=== PATIENT | male | born 1945 | race African-American/Black ===

== ENCOUNTER → 2016-12-25 | Outpatient (CLI) | payer MEDICARE, MEDICAID ==
[~2016-12-25] MED LIST: REGADENOSON 0.4 MG/5 ML IV ONE
== END | disposition home or self-care (01) ==
LOC: NM 07:05
DX: I44.7 Left bundle-branch block, unspecified (principal); R07.9 Chest pain, unspecified; N18.6 End stage renal disease
CPT/HCPCS: 78452; 93017; A9500; J2785

== ENCOUNTER 2018-09-03 04:43 | Inpatient (IN) | payer MEDICARE, MEDICAID ==
[~2018-09-03] VITALS: Ht 188 cm; Wt 93.4 kg
[2018-09-03 07:30] LABS: BASOPHILS % 1.4 % (0.0-2.0); EOSINOPHILS % 10.1 % (0.0-5.0); HEMOGLOBIN. 11.3 g/dL (14.0-18.0); LYMPHOCYTES % 11.1 % (20.0-50.0); MEAN CORPUSCULAR HEMOGLOBIN 32.5 pg (28.0-32.0); MEAN CORPUSCULAR VOLUME 94.8 fL (80.0-94.0); MEAN PLATELET VOLUME 9.1 fl (7.4-10.4); MONOCYTES % 7.3 % (2.0-8.0); NEUTROPHILS % 70.1 % (40.0-76.0); PLATELET 151 x1000/uL (130-400); RED BLOOD CELL COUNT 3.47 mill/uL (4.7-6.1); RED CELL DISTRIBUTION WIDTH 15.1 % (11.6-14.6)
[2018-09-03 07:37] LABS: CHLORIDE 101 mEq/L (98-107)
[2018-09-03 07:39] LABS: INR 1.2; PROTHROMBIN TIME 12.2 sec (9.1-11.1)
[2018-09-03] MEDS ORDERED: ASPIRIN 325MG EC TABLET PO ONE (08:00)
[2018-09-03 12:30] VITALS: BP 162/70
[2018-09-03] MEDS ORDERED: DOCUSATE SODIUM 100MG CAPSULE PO PRN (12:45)
[2018-09-03] MEDS ORDERED: ACETAMINOPHEN 325MG TABLET PO PRN (12:45)
[2018-09-03] MEDS ORDERED: MAGNESIUM/ALUMINUM HYDROXIDE/SIMETHICONE 30ML UDC PO PRN (12:45)
[2018-09-03] MEDS ORDERED: HYDROCODONE/ACETAMINOPHEN 5/325MG TABLET PO PRN (12:45)
[2018-09-03] MEDS ORDERED: NA PHOS,M-B/NA PHOS,DI-BA ENEMA 118ML PR PRN (12:45)
[2018-09-03] MEDS ORDERED: DIPHENHYDRAMINE 50MG/ML VIAL IV PRN (12:45)
[2018-09-03] MEDS ORDERED: CLONIDINE 0.1MG TABLET PO PRN (12:45)
[2018-09-03] MEDS ORDERED: ONDANSETRON HCL 4MG/2ML INJ IV PRN (12:45)
[2018-09-03] MEDS ORDERED: GUAIFENESIN 200MG/10ML SUGAR FREE UDC PO PRN (12:45)
[2018-09-03] MEDS ORDERED: NEPVIT MT (13:33)
[2018-09-03] MEDS ORDERED: NIFE60TA64 MT (13:33)
[2018-09-03] MEDS ORDERED: ESOM40CA MT (13:33)
[2018-09-03] MEDS ORDERED: APIX2.5T MT (13:33)
[2018-09-03] MEDS ORDERED: BENA40TA9 MT (13:33)
[2018-09-03] MEDS ORDERED: DEXTROSE 50% WATER 50ML SYRINGE IV PRN ×2 (13:45)
[2018-09-03 14:01] VITALS: BP 162/70
[2018-09-03 16:00] VITALS: BP 160/82
[2018-09-03] MEDS: INSULIN LISPRO 100 UNITS/ML SUBCUT SCH ×2 (17:40→20:31)
[2018-09-03] MEDS: BLOOD SUGAR DIAGNOSTIC STRIP TEST SCH ×2 (17:53→20:31)
[2018-09-03] MEDS: ENOXAPARIN 100MG/ML SYR SUBCUT SCH (17:53)
[2018-09-03 20:00] VITALS: BP 150/75
[2018-09-04] VITALS (7 sets, daily range): BP systolic 127–161; BP diastolic 59–87
[2018-09-04] MEDS: BLOOD SUGAR DIAGNOSTIC STRIP TEST SCH ×4 (06:48→21:00)
[2018-09-04] MEDS: INSULIN LISPRO 100 UNITS/ML SUBCUT SCH ×4 (06:49→21:00)
[2018-09-04 07:09] LABS: BASOPHILS % 1.3 % (0.0-2.0); EOSINOPHILS % 8.1 % (0.0-5.0); HEMATOCRIT. 36.2 % (42.0-52.0); LYMPHOCYTES % 16.2 % (20.0-50.0); MEAN CORPUSCULAR HEMOGLOBIN 31.9 pg (28.0-32.0); MEAN PLATELET VOLUME 9.3 fl (7.4-10.4); MONOCYTES % 8.5 % (2.0-8.0); NEUTROPHILS % 65.9 % (40.0-76.0); PLATELET 137 x1000/uL (130-400); RED BLOOD CELL COUNT 3.77 mill/uL (4.7-6.1)
[2018-09-04 07:30] LABS: CREATINE KINASE MB FRACTION 1.3 ng/mL (0.5-3.6)
[2018-09-04] MEDS: ENOXAPARIN 100MG/ML SYR SUBCUT SCH (08:49)
[2018-09-05] VITALS: BP 138/64
[2018-09-05 04:00] VITALS: BP 151/73
[2018-09-05 08:00] VITALS: BP 142/70
[2018-09-05 08:58] VITALS: BP 142/70
[2018-09-05] MEDS: ENOXAPARIN 100MG/ML SYR SUBCUT SCH (09:52)
== END 2018-09-05 10:25 | disposition home or self-care (01) | DRG 312 ==
LOC: ER 05:24 → 8WST 08:04 → EDBEDREQ 08:07 → ENRESERV 09:50
PROVIDERS: ADMIT Hospitalist; ATTEND Hospitalist
PROC: 5A1D70Z Performance of Urinary Filtration, Intermittent, Less than 6 Hours Per Day (ICD-10-PCS; principal; 2018-09-03)
DX: I95.1 Orthostatic hypotension (principal); N18.6 End stage renal disease; D68.59 Other primary thrombophilia; E46 Unspecified protein-calorie malnutrition; I13.2 Hypertensive heart and chronic kidney disease with heart failure and with stage 5 chronic kidney disease, or end stage renal disease; D63.8 Anemia in other chronic diseases classified elsewhere; E11.22 Type 2 diabetes mellitus with diabetic chronic kidney disease; E11.40 Type 2 diabetes mellitus with diabetic neuropathy, unspecified; E11.69 Type 2 diabetes mellitus with other specified complication; E78.00 Pure hypercholesterolemia, unspecified; E78.5 Hyperlipidemia, unspecified; E87.6 Hypokalemia; I25.10 Atherosclerotic heart disease of native coronary artery without angina pectoris; I48.2 Chronic atrial fibrillation; I50.9 Heart failure, unspecified; M19.90 Unspecified osteoarthritis, unspecified site; K80.20 Calculus of gallbladder without cholecystitis without obstruction; M10.9 Gout, unspecified; Z79.01 Long term (current) use of anticoagulants; Z82.49 Family history of ischemic heart disease and other diseases of the circulatory system; Z83.3 Family history of diabetes mellitus; Z86.73 Personal history of transient ischemic attack (TIA), and cerebral infarction without residual deficits; Z99.2 Dependence on renal dialysis; Z68.26 Body mass index [BMI] 26.0-26.9, adult; Z79.84 Long term (current) use of oral hypoglycemic drugs
CPT/HCPCS: 36415; 71045; 80048; 80061; 82550; 82553; 82962; 83036; 83735; 84100; 84443; 84484; 85379; 93005; 93970; 99285; J1650

== ENCOUNTER 2018-09-15 04:18 | Inpatient (IN) | payer MEDICARE, MEDICAID ==
[~2018-09-15] VITALS: Ht 188 cm; Wt 101.6 kg
[~2018-09-15 04:18] MED LIST changes: +APIX2.5T MT; +BENA40TA9 MT; +ESOM40CA MT; +NEPVIT MT; +NIFE60TA64 MT; -REGADENOSON 0.4 MG/5 ML IV ONE
[2018-09-15 05:26] LABS: BASOPHILS % 0.8 % (0.0-2.0); EOSINOPHILS % 5.5 % (0.0-5.0); HEMOGLOBIN. 12.4 g/dL (14.0-18.0); LYMPHOCYTES % 10.3 % (20.0-50.0); MEAN CORPUSCULAR HEMOGLOBIN 32.4 pg (28.0-32.0); MEAN CORPUSCULAR VOLUME 96.5 fL (80.0-94.0); MEAN PLATELET VOLUME 9.6 fl (7.4-10.4); MONOCYTES % 5.8 % (2.0-8.0); NEUTROPHILS % 77.6 % (40.0-76.0); PLATELET 132 x1000/uL (130-400); RED BLOOD CELL COUNT 3.83 mill/uL (4.7-6.1); RED CELL DISTRIBUTION WIDTH 15.6 % (11.6-14.6)
[2018-09-15 05:29] LABS: CHLORIDE 99 mEq/L (98-107)
[2018-09-15 05:34] LABS: INR 1.2
[2018-09-15] MEDS: CALCIUM ACETATE 667MG CAPSULE PO SCH ×2 (13:00→17:33)
[2018-09-15 14:00] VITALS: BP 144/72
[2018-09-15 14:38] VITALS: BP 144/72
[2018-09-15] MEDS: LISINOPRIL 40MG TABLET PO SCH (15:45)
[2018-09-15] MEDS ORDERED: FOLIC ACID/VITAMIN B COMP W-C TABLET PO SCH (15:45)
[2018-09-15] MEDS: NIFEDIPINE XL 60MG TAB PO SCH (15:45)
[2018-09-15] MEDS ORDERED: ENOXAPARIN 40MG/0.4ML SYR SUBCUT SCH (15:45)
[2018-09-15] MEDS: APIXABAN 2.5 MG TABLET PO SCH (17:33)
[2018-09-15] MEDS ORDERED: DEXTROSE 50% WATER 50ML SYRINGE IV PRN (18:15)
[2018-09-15 20:51] VITALS: BP 125/61
[2018-09-15 20:52] VITALS: BP 124/62
[2018-09-15 20:53] VITALS: BP 121/54
[2018-09-15] MEDS: BLOOD SUGAR DIAGNOSTIC STRIP TEST SCH (21:18)
[2018-09-15] MEDS: PANTOPRAZOLE 40MG DR TABLET PO SCH (21:18)
[2018-09-15] MEDS: SODIUM CHLORIDE 0.9% INJ 3ML FLUSH IVF SCH (21:19)
[2018-09-15] MEDS: INSULIN LISPRO 100 UNITS/ML SUBCUT SCH (21:25)
[2018-09-16] VITALS (8 sets, daily range): BP systolic 105–152; BP diastolic 47–85
[2018-09-16] MEDS: SODIUM CHLORIDE 0.9% INJ 3ML FLUSH IVF SCH ×3 (06:17→20:57)
[2018-09-16] MEDS: BLOOD SUGAR DIAGNOSTIC STRIP TEST SCH ×4 (06:20→20:32)
[2018-09-16] MEDS: PANTOPRAZOLE 40MG DR TABLET PO SCH (06:20)
[2018-09-16] MEDS: INSULIN LISPRO 100 UNITS/ML SUBCUT SCH ×4 (07:50→20:32)
[2018-09-16 08:01] LABS: BASOPHILS % 1.1 % (0.0-2.0); EOSINOPHILS % 5.2 % (0.0-5.0); HEMATOCRIT. 37.8 % (42.0-52.0); HEMOGLOBIN. 12.5 g/dL (14.0-18.0); LYMPHOCYTES % 13.9 % (20.0-50.0); MEAN CORPUSCULAR HEMOGLOBIN 31.9 pg (28.0-32.0); MEAN CORPUSCULAR VOLUME 96.4 fL (80.0-94.0); MEAN PLATELET VOLUME 9.9 fl (7.4-10.4); NEUTROPHILS % 70.8 % (40.0-76.0); PLATELET 129 x1000/uL (130-400); RED BLOOD CELL COUNT 3.92 mill/uL (4.7-6.1); RED CELL DISTRIBUTION WIDTH 15.3 % (11.6-14.6)
[2018-09-16] MEDS: FOLIC ACID/VITAMIN B COMP W-C TABLET PO SCH (09:18)
[2018-09-16] MEDS: NIFEDIPINE XL 60MG TAB PO SCH (09:19)
[2018-09-16] MEDS: LISINOPRIL 40MG TABLET PO SCH (09:19)
[2018-09-16] MEDS: APIXABAN 2.5 MG TABLET PO SCH ×2 (09:19→17:33)
[2018-09-16] MEDS: CALCIUM ACETATE 667MG CAPSULE PO SCH ×3 (09:19→17:33)
[2018-09-16 10:10] LABS: PHOSPHORUS 4.1 mg/dL (2.5-4.9)
[2018-09-16 10:16] LABS: CREATINE KINASE MB FRACTION 2.1 ng/mL (0.5-3.6)
[2018-09-16] MEDS: AZITHROMYCIN 500 MG TABLET PO SCH (12:31)
[2018-09-16] MEDS: ALBUTEROL (0.5%) 2.5MG/0.5ML NEB HHN SCH ×3 (12:46→23:43)
[2018-09-16] MEDS ORDERED: ACETAMINOPHEN 325MG TABLET PO PRN (20:45)
[2018-09-17] VITALS: BP 141/63
[2018-09-17 04:00] VITALS: BP 130/64
[2018-09-17] MEDS: SODIUM CHLORIDE 0.9% INJ 3ML FLUSH IVF SCH ×3 (05:51→21:06)
[2018-09-17] MEDS: BLOOD SUGAR DIAGNOSTIC STRIP TEST SCH ×4 (06:25→21:06)
[2018-09-17 06:35] LABS: HEMATOCRIT. 35.8 % (42.0-52.0); HEMOGLOBIN. 10.7 g/dL (14.0-18.0); MEAN CORPUSCULAR HEMOGLOBIN 29.1 pg (28.0-32.0); MEAN CORPUSCULAR VOLUME 97.8 fL (80.0-94.0); RED BLOOD CELL COUNT 3.66 mill/uL (4.7-6.1); RED CELL DISTRIBUTION WIDTH 15.7 % (11.6-14.6)
[2018-09-17] MEDS: INSULIN LISPRO 100 UNITS/ML SUBCUT SCH ×4 (07:50→21:00)
[2018-09-17 08:00] VITALS: BP_SYST 132; BP_SYST 134; BP_SYST 136; BP_DIAS 60; BP_DIAS 66; BP_DIAS 70
[2018-09-17] MEDS: ALBUTEROL (0.5%) 2.5MG/0.5ML NEB HHN SCH ×4 (08:04→22:12)
[2018-09-17] MEDS ORDERED: CLONIDINE 0.1MG TABLET PO PRN (08:45)
[2018-09-17] MEDS: FOLIC ACID/VITAMIN B COMP W-C TABLET PO SCH (08:56)
[2018-09-17] MEDS: FAMOTIDINE 20MG TABLET PO SCH (08:56)
[2018-09-17] MEDS: CALCIUM ACETATE 667MG CAPSULE PO SCH ×3 (08:57→17:59)
[2018-09-17] MEDS: AZITHROMYCIN 500 MG TABLET PO SCH (08:57)
[2018-09-17] MEDS: APIXABAN 2.5 MG TABLET PO SCH ×2 (08:57→17:59)
[2018-09-17] MEDS: NIFEDIPINE XL 60MG TAB PO SCH (09:13)
[2018-09-17 10:17] LABS: PLATELET 128 x1000/uL (130-400)
[2018-09-17 10:22] LABS: PLATELET ESTIMATE SLIGHTLY DECREASED
[2018-09-17 12:00] VITALS: BP 148/70
[2018-09-17 16:00] VITALS: BP 147/64
[2018-09-17 20:00] VITALS: BP 129/60
[2018-09-18] VITALS: BP_SYST 126; BP_SYST 130; BP_SYST 135; BP_DIAS 57; BP_DIAS 62; BP_DIAS 70
[2018-09-18 04:00] VITALS: BP 130/62
[2018-09-18] MEDS: BLOOD SUGAR DIAGNOSTIC STRIP TEST SCH ×3 (06:25→21:00)
[2018-09-18] MEDS: SODIUM CHLORIDE 0.9% INJ 3ML FLUSH IVF SCH ×3 (06:25→14:00)
[2018-09-18 06:57] LABS: BASOPHILS % 1.4 % (0.0-2.0); HEMATOCRIT. 34.6 % (42.0-52.0); HEMOGLOBIN. 11.6 g/dL (14.0-18.0); LYMPHOCYTES % 11.2 % (20.0-50.0); MEAN CORPUSCULAR HEMOGLOBIN 32.1 pg (28.0-32.0); MEAN CORPUSCULAR VOLUME 95.4 fL (80.0-94.0); MEAN PLATELET VOLUME 9.5 fl (7.4-10.4); MONOCYTES % 10.3 % (2.0-8.0); NEUTROPHILS % 72.1 % (40.0-76.0); PLATELET 155 x1000/uL (130-400); RED BLOOD CELL COUNT 3.62 mill/uL (4.7-6.1); RED CELL DISTRIBUTION WIDTH 14.8 % (11.6-14.6)
[2018-09-18] MEDS: INSULIN LISPRO 100 UNITS/ML SUBCUT SCH ×3 (07:24→21:00)
[2018-09-18 07:48] LABS: VITAMIN B12 SERUM 1134 pg/mL (211-911)
[2018-09-18 08:00] VITALS: BP 141/70
[2018-09-18] MEDS: ALBUTEROL (0.5%) 2.5MG/0.5ML NEB HHN SCH (08:04)
[2018-09-18] MEDS: CALCIUM ACETATE 667MG CAPSULE PO SCH ×2 (09:48→13:47)
[2018-09-18] MEDS: APIXABAN 2.5 MG TABLET PO SCH (09:48)
[2018-09-18] MEDS: NIFEDIPINE XL 60MG TAB PO SCH (09:48)
[2018-09-18] MEDS: FOLIC ACID/VITAMIN B COMP W-C TABLET PO SCH (09:48)
[2018-09-18] MEDS: AZITHROMYCIN 500 MG TABLET PO SCH (09:48)
[2018-09-18] MEDS: FAMOTIDINE 20MG TABLET PO SCH (09:48)
[2018-09-18 12:00] VITALS: BP_SYST 133; BP_SYST 141; BP_SYST 150; BP_DIAS 57; BP_DIAS 72; BP_DIAS 73
[2018-09-18] MEDS: ALBUTEROL (0.083%) 2.5MG/3ML NEB HHN SCH ×3 (12:30→21:24)
[2018-09-18 16:00] VITALS: BP 164/65
[2018-09-18 20:00] VITALS: BP 133/60
[2018-09-19] VITALS (7 sets, daily range): BP systolic 124–157; BP diastolic 52–72
[2018-09-19 06:45] LABS: BASOPHILS % 1.4 % (0.0-2.0); EOSINOPHILS % 4.3 % (0.0-5.0); HEMATOCRIT. 34.1 % (42.0-52.0); HEMOGLOBIN. 11.3 g/dL (14.0-18.0); LYMPHOCYTES % 11.8 % (20.0-50.0); MEAN CORPUSCULAR HEMOGLOBIN 32.5 pg (28.0-32.0); MEAN CORPUSCULAR VOLUME 97.8 fL (80.0-94.0); MEAN PLATELET VOLUME 9.4 fl (7.4-10.4); MONOCYTES % 10.9 % (2.0-8.0); NEUTROPHILS % 71.6 % (40.0-76.0); PLATELET 148 x1000/uL (130-400); RED BLOOD CELL COUNT 3.49 mill/uL (4.7-6.1); RED CELL DISTRIBUTION WIDTH 15.4 % (11.6-14.6)
[2018-09-19 07:01] LABS: PHOSPHORUS 4.8 mg/dL (2.5-4.9)
[2018-09-19] MEDS: BLOOD SUGAR DIAGNOSTIC STRIP TEST SCH ×4 (07:20→21:00)
[2018-09-19] MEDS: CALCIUM ACETATE 667MG CAPSULE PO SCH ×3 (07:50→17:45)
[2018-09-19] MEDS: INSULIN LISPRO 100 UNITS/ML SUBCUT SCH ×4 (07:50→21:00)
[2018-09-19] MEDS: ALBUTEROL (0.083%) 2.5MG/3ML NEB HHN SCH ×4 (08:07→22:27)
[2018-09-19] MEDS: AZITHROMYCIN 500 MG TABLET PO SCH (09:32)
[2018-09-19] MEDS: FAMOTIDINE 20MG TABLET PO SCH (09:32)
[2018-09-19] MEDS: FOLIC ACID/VITAMIN B COMP W-C TABLET PO SCH (09:32)
[2018-09-19] MEDS: NIFEDIPINE XL 30MG TAB PO SCH (09:32)
[2018-09-19] MEDS: APIXABAN 2.5 MG TABLET PO SCH ×2 (09:32→17:45)
[2018-09-19] MEDS: SODIUM CHLORIDE 0.9% INJ 3ML FLUSH IVF SCH (14:00)
[2018-09-19] MEDS: LOSARTAN POTASSIUM 50 MG TABLET PO SCH (15:26)
[2018-09-20] VITALS (9 sets, daily range): BP systolic 138–156; BP diastolic 51–74
[2018-09-20] MEDS: INSULIN LISPRO 100 UNITS/ML SUBCUT SCH ×4 (07:50→21:00)
[2018-09-20] MEDS: BLOOD SUGAR DIAGNOSTIC STRIP TEST SCH ×4 (08:01→21:38)
[2018-09-20 08:07] LABS: BASOPHILS % 1.2 % (0.0-2.0); HEMATOCRIT. 34.1 % (42.0-52.0); HEMOGLOBIN. 11.7 g/dL (14.0-18.0); LYMPHOCYTES % 11.4 % (20.0-50.0); MEAN CORPUSCULAR HEMOGLOBIN 32.6 pg (28.0-32.0); MEAN CORPUSCULAR VOLUME 95.1 fL (80.0-94.0); MEAN PLATELET VOLUME 9.5 fl (7.4-10.4); MONOCYTES % 8.5 % (2.0-8.0); NEUTROPHILS % 73.9 % (40.0-76.0); PLATELET 149 x1000/uL (130-400); RED BLOOD CELL COUNT 3.59 mill/uL (4.7-6.1); RED CELL DISTRIBUTION WIDTH 14.6 % (11.6-14.6)
[2018-09-20 08:30] LABS: PHOSPHORUS 5.8 mg/dL (2.5-4.9)
[2018-09-20] MEDS: APIXABAN 2.5 MG TABLET PO SCH ×3 (09:00→19:18)
[2018-09-20] MEDS: ASCORBIC ACID 250 MG TABLET PO SCH ×2 (09:19→18:36)
[2018-09-20] MEDS: ZINC SULFATE 220 MG ( 50 ) CAPSULE PO SCH (09:19)
[2018-09-20] MEDS: CALCIUM ACETATE 667MG CAPSULE PO SCH ×3 (09:19→18:37)
[2018-09-20] MEDS: FAMOTIDINE 20MG TABLET PO SCH (09:19)
[2018-09-20] MEDS: ALBUTEROL (0.083%) 2.5MG/3ML NEB HHN SCH ×4 (09:50→22:24)
[2018-09-20] MEDS: NIFEDIPINE XL 30MG TAB PO SCH (17:25)
[2018-09-20] MEDS: LOSARTAN POTASSIUM 50 MG TABLET PO SCH (18:34)
[2018-09-20] MEDS: FOLIC ACID/VITAMIN B COMP W-C TABLET PO SCH (18:36)
[2018-09-20] MEDS: AZITHROMYCIN 500 MG TABLET PO SCH (18:37)
[2018-09-21] VITALS: BP 147/55
[2018-09-21 04:00] VITALS: BP 155/68
[2018-09-21 06:16] LABS: BASOPHILS % 1.4 % (0.0-2.0); EOSINOPHILS % 4.3 % (0.0-5.0); HEMATOCRIT. 33.4 % (42.0-52.0); HEMOGLOBIN. 11.4 g/dL (14.0-18.0); LYMPHOCYTES % 10.9 % (20.0-50.0); MEAN CORPUSCULAR HEMOGLOBIN 32.3 pg (28.0-32.0); MEAN CORPUSCULAR VOLUME 94.7 fL (80.0-94.0); MEAN PLATELET VOLUME 9.7 fl (7.4-10.4); MONOCYTES % 12.6 % (2.0-8.0); NEUTROPHILS % 70.8 % (40.0-76.0); PLATELET 143 x1000/uL (130-400); RED BLOOD CELL COUNT 3.53 mill/uL (4.7-6.1); RED CELL DISTRIBUTION WIDTH 14.6 % (11.6-14.6)
[2018-09-21] MEDS: INSULIN LISPRO 100 UNITS/ML SUBCUT SCH ×3 (07:50→17:37)
[2018-09-21 08:00] VITALS: BP 145/68
[2018-09-21] MEDS: BLOOD SUGAR DIAGNOSTIC STRIP TEST SCH ×3 (08:07→17:37)
[2018-09-21] MEDS: CALCIUM ACETATE 667MG CAPSULE PO SCH ×3 (08:16→18:49)
[2018-09-21] MEDS: ZINC SULFATE 220 MG ( 50 ) CAPSULE PO SCH (08:17)
[2018-09-21] MEDS: APIXABAN 2.5 MG TABLET PO SCH ×2 (08:17→17:37)
[2018-09-21] MEDS: FAMOTIDINE 20MG TABLET PO SCH (08:17)
[2018-09-21] MEDS: ASCORBIC ACID 250 MG TABLET PO SCH ×2 (08:17→18:49)
[2018-09-21] MEDS: FOLIC ACID/VITAMIN B COMP W-C TABLET PO SCH (08:17)
[2018-09-21] MEDS: LOSARTAN POTASSIUM 50 MG TABLET PO SCH (08:26)
[2018-09-21] MEDS: ALBUTEROL (0.083%) 2.5MG/3ML NEB HHN SCH ×3 (08:50→17:30)
[2018-09-21] MEDS ORDERED: NIFEDIPINE XL 30MG TAB PO SCH ×2 (09:00→17:00)
[2018-09-21 11:10] VITALS: BP 160/79
[2018-09-21 15:37] VITALS: BP 155/69
== END 2018-09-21 21:15 | disposition home health service (06) | DRG 73 ==
LOC: ER 04:18 → 6WST 06:24 → ENRESERV 12:36
PROVIDERS: ADMIT Ophthalmology; ATTEND Internal Medicine
PROC: 5A1D70Z Performance of Urinary Filtration, Intermittent, Less than 6 Hours Per Day (ICD-10-PCS; 2018-09-15)
PROC: 5A1D70Z Performance of Urinary Filtration, Intermittent, Less than 6 Hours Per Day (ICD-10-PCS; 2018-09-17)
PROC: 5A1D70Z Performance of Urinary Filtration, Intermittent, Less than 6 Hours Per Day (ICD-10-PCS; principal; 2018-09-20)
DX: G90.8 Other disorders of autonomic nervous system (principal); N18.6 End stage renal disease; I13.2 Hypertensive heart and chronic kidney disease with heart failure and with stage 5 chronic kidney disease, or end stage renal disease; I48.92 Unspecified atrial flutter; E87.1 Hypo-osmolality and hyponatremia; J98.11 Atelectasis; I95.1 Orthostatic hypotension; D63.1 Anemia in chronic kidney disease; E11.22 Type 2 diabetes mellitus with diabetic chronic kidney disease; E78.00 Pure hypercholesterolemia, unspecified; E11.40 Type 2 diabetes mellitus with diabetic neuropathy, unspecified; E11.51 Type 2 diabetes mellitus with diabetic peripheral angiopathy without gangrene; J06.9 Acute upper respiratory infection, unspecified; J44.9 Chronic obstructive pulmonary disease, unspecified; I48.2 Chronic atrial fibrillation; E11.319 Type 2 diabetes mellitus with unspecified diabetic retinopathy without macular edema; M10.9 Gout, unspecified; D69.6 Thrombocytopenia, unspecified; E78.5 Hyperlipidemia, unspecified; H53.2 Diplopia; H91.90 Unspecified hearing loss, unspecified ear; I50.9 Heart failure, unspecified; I27.29 Other secondary pulmonary hypertension; W18.30XA Fall on same level, unspecified, initial encounter; Y93.89 Activity, other specified; Y92.89 Other specified places as the place of occurrence of the external cause; Y99.8 Other external cause status; Z87.891 Personal history of nicotine dependence; Z99.2 Dependence on renal dialysis; Z86.73 Personal history of transient ischemic attack (TIA), and cerebral infarction without residual deficits; Z79.01 Long term (current) use of anticoagulants
CPT/HCPCS: 36415; 71045; 80048; 82550; 82553; 82607; 82962; 83036; 83735; 83880; 84100; 84443; 84484; 85379; 93005; 93306; 93970; 94640; 97116; 97162; 99285; J1815; J7611

== ENCOUNTER 2019-02-16 05:23 | Inpatient (IN) | payer MEDICARE, MEDICAID ==
[2019-02-16] VITALS (45 sets, daily range): BP systolic 52–155; BP diastolic 20–81
[~2019-02-16] VITALS: Ht 193 cm; Wt 95.3 kg
[~2019-02-16 05:23] MED LIST changes: -BENA40TA9 MT; +GABA-529 PO
[2019-02-16] MEDS ORDERED: SODIUM CHLORIDE 0.9% 500 ML IV NR (06:00)
[2019-02-16 06:56] LABS: INR 1.2; PARTIAL THROMBOPLASTIN TIME 38.8 sec (23.4-31.0); PROTHROMBIN TIME 12.2 sec (9.6-11.0)
[2019-02-16] MEDS ORDERED: BACITRACIN 50,000 UNITS/VIAL ONE (09:15)
[2019-02-16] MEDS ORDERED: LIDOCAINE HCL/EPINEPHRINE 1%-EPI 1:100,000 20 ML VIAL ONE (09:15)
[2019-02-16] MEDS ORDERED: THROMBIN (BOVINE) 5000 UNITS/VIAL TOP ONE ×2 (09:15→09:16)
[2019-02-16] MEDS ORDERED: NORMAL SALINE 0.9% 10 ML SYR ONE (09:15)
[2019-02-16] MEDS ORDERED: ROCURONIUM BROMIDE 10MG/ML VIAL 5ML IV ONE (09:37)
[2019-02-16] MEDS ORDERED: LABETALOL 5MG/ML SYR 20 MG/4 ML SYRINGE IV PRN ×2 (10:30)
[2019-02-16] MEDS ORDERED: HYDROMORPHONE HCL/PF 2MG/ML CPJ IV PRN ×2 (10:30)
[2019-02-16] MEDS ORDERED: MEPERIDINE HCL/PF 25MG/ML CPJ IV PRN ×2 (10:30)
[2019-02-16] MEDS ORDERED: ONDANSETRON HCL 4MG/2ML INJ IV PRN ×2 (10:30)
[2019-02-16] MEDS ORDERED: FENTANYL CITRATE/PF 50MCG/ML 2ML VIAL ONE ×2 (10:57→11:54)
[2019-02-16] MEDS ORDERED: EPHEDRINE SULFATE 50MG/ML VIAL ONE (12:26)
[2019-02-16] MEDS ORDERED: HYDRALAZINE 20MG/ML VIAL ONE (12:26)
[2019-02-16] MEDS ORDERED: VERAPAMIL HCL 2.5 MG/1 ML 2ML VIAL IV ONE (12:26)
[2019-02-16] MEDS ORDERED: MORPHINE SULFATE 2 MG/ML CPJ (NOT FOR IM USE) IV PRN (13:00)
[2019-02-16] MEDS ORDERED: NICARDIPINE 100 MG in SODIUM CHLORIDE 0.9% 60 ML IV PRN (13:00)
[2019-02-16] MEDS ORDERED: ACETAMINOPHEN 650MG SUPP PR PRN (13:45)
[2019-02-16] MEDS ORDERED: DIPHENHYDRAMINE 50MG/ML VIAL IV PRN (13:45)
[2019-02-16] MEDS ORDERED: DEXTROSE 50% WATER 50ML SYRINGE IV PRN (13:45)
[2019-02-16] MEDS ORDERED: ACETAMINOPHEN 325MG TABLET PO PRN (13:45)
[2019-02-16] MEDS ORDERED: HYDRALAZINE 20MG/ML VIAL IV PRN (13:45)
[2019-02-16] MEDS ORDERED: LIDOCAINE HCL 1% 20ML VIAL (Pyxis) INJ ONE (14:13)
[2019-02-16] MEDS: NICARDIPINE 100 MG in SODIUM CHLORIDE 0.9% 60 ML IV PRN (14:13)
[2019-02-16 14:17] LABS: BG BASE EXCESS -1.2 mmol/L (-2.0-2.0); BG CARBOXYHEMOGLOBIN 0.8 % (0.5-1.5); BG DEOXYHEMOGLOBIN 0.6 % (0.0-5.0); BG FRACTION INSPIRED OXYGEN 100; BG HCO3 ACT 23.8 mmol/L (22.0-26.0); BG METHEMOGLOBIN 0.3 % (0.0-1.5); BG OXYGEN SATURATION 99.4 % (92.0-98.5); BG OXYHEMOGLOBIN 98.3 % (94.0-97.0); BG PCO2 40.8 mmHg (35.0-45.0); BG PH 7.384 (7.350-7.450); BG SAMPLE SITE A-LINE; BG TIDAL VOLUME(mL) 500 mL; BG TOTAL HEMOGLOBIN 11.3 g/dL (12.0-18.0); BG VENT MODE VENT - A/C; BG VENT RATE 10 set
[2019-02-16] MEDS: DEXAMETHASONE 4MG/ML 1ML VIAL IV SCH ×2 (14:51→19:57)
[2019-02-16] MEDS: DEXT 5%/0.45% NACL 1000ML 1,000 ML IV SCH (14:52)
[2019-02-16 16:02] LABS: HEMATOCRIT 32.5 % (42.0-52.0); HEMOGLOBIN 10.8 g/dL (14.0-18.0); MEAN CORPUSCULAR HEMOGLOBIN 30.4 pg (28.0-32.0); PLATELET 249 x1000/uL (130-400); RED BLOOD CELL COUNT 3.53 mill/uL (4.7-6.1); RED CELL DISTRIBUTION WIDTH 14.3 % (11.6-14.6)
[2019-02-16 16:05] LABS: CHLORIDE 97 mEq/L (98-107)
[2019-02-16 16:13] LABS: LDL CHOLESTEROL 51 mg/dL (5-100)
[2019-02-16 16:15] LABS: HDL CHOLESTEROL 37 mg/dL (40-59); T4 FREE 1.42 ng/dL (0.76-1.46)
[2019-02-16 16:36] LABS: INR 1.2; PROTHROMBIN TIME 12.2 sec (9.6-11.0)
[2019-02-16] MEDS: CEFAZOLIN 500MG in DEXTROSE 5% WATER 50ML IV SCH (17:41)
[2019-02-16] MEDS: PROPOFOL 10MG/ML 100ML 100 ML IV PRN (17:42)
[2019-02-16] MEDS: BLOOD SUGAR DIAGNOSTIC STRIP TEST SCH ×2 (17:50→20:59)
[2019-02-16] MEDS: INSULIN LISPRO 100 UNITS/ML SUBCUT SCH ×2 (18:31→21:01)
[2019-02-17] VITALS (94 sets, daily range): BP systolic 84–171; BP diastolic 18–99
[2019-02-17] MEDS ORDERED: ATROPINE SULFATE 1MG/ML VIAL IV PRN (01:15)
[2019-02-17] MEDS: DEXAMETHASONE 4MG/ML 1ML VIAL IV SCH ×4 (02:02→20:28)
[2019-02-17] MEDS: PROPOFOL 10MG/ML 100ML 100 ML IV PRN (03:17)
[2019-02-17 05:44] LABS: HEMATOCRIT. 31.1 % (42.0-52.0); HEMOGLOBIN. 10.3 g/dL (14.0-18.0); MEAN CORPUSCULAR HEMOGLOBIN 30.2 pg (28.0-32.0); MEAN CORPUSCULAR VOLUME 91.2 fL (80.0-94.0); MEAN PLATELET VOLUME 8.8 fl (7.4-10.4); PHOSPHORUS 6.6 mg/dL (2.5-4.9); PLATELET 257 x1000/uL (130-400); RED BLOOD CELL COUNT 3.41 mill/uL (4.7-6.1); RED CELL DISTRIBUTION WIDTH 14.3 % (11.6-14.6)
[2019-02-17] MEDS: BLOOD SUGAR DIAGNOSTIC STRIP TEST SCH ×4 (06:34→20:24)
[2019-02-17] MEDS: INSULIN LISPRO 100 UNITS/ML SUBCUT SCH ×4 (06:34→20:29)
[2019-02-17] MEDS: DEXT 5%/0.45% NACL 1000ML 1,000 ML IV SCH ×2 (06:34→23:25)
[2019-02-17 06:42] LABS: PLATELET ESTIMATE NORMAL
[2019-02-17 07:47] LABS: BG BASE EXCESS -0.5 mmol/L (-2.0-2.0); BG CARBOXYHEMOGLOBIN 0.6 % (0.5-1.5); BG DEOXYHEMOGLOBIN 3.3 % (0.0-5.0); BG METHEMOGLOBIN 0.2 % (0.0-1.5); BG OXYGEN SATURATION 96.7 % (92.0-98.5); BG OXYHEMOGLOBIN 95.9 % (94.0-97.0); BG PCO2 38.6 mmHg (35.0-45.0); BG PH 7.411 (7.350-7.450); BG PO2 96.2 mmHg (75.0-100.0); BG SAMPLE SITE A-LINE; BG TIDAL VOLUME(mL) 500 mL; BG TOTAL HEMOGLOBIN 10.7 g/dL (12.0-18.0); BG VENT MODE VENT - A/C; BG VENT RATE 10 set
[2019-02-17] MEDS ORDERED: CEFAZOLIN SODIUM 1000MG/VIAL IV SCH (09:00)
[2019-02-17] MEDS: ATROPINE SULFATE 1MG/10ML SYR IV PRN (09:00)
[2019-02-17] MEDS ORDERED: SODIUM CHLORIDE 0.9% 100 ML IV NR (14:00)
[2019-02-17 15:05] LABS: CREATINE KINASE MB FRACTION 7.7 ng/mL (0.5-3.6)
[2019-02-17 15:44] LABS: BG BASE EXCESS 0.8 mmol/L (-2.0-2.0); BG CARBOXYHEMOGLOBIN 0.3 % (0.5-1.5); BG DEOXYHEMOGLOBIN 3.5 % (0.0-5.0); BG FRACTION INSPIRED OXYGEN 40; BG HCO3 ACT 23.4 mmol/L (22.0-26.0); BG METHEMOGLOBIN 0.1 % (0.0-1.5); BG OXYGEN SATURATION 96.5 % (92.0-98.5); BG OXYHEMOGLOBIN 96.1 % (94.0-97.0); BG PCO2 30.9 mmHg (35.0-45.0); BG PH 7.497 (7.350-7.450); BG PO2 87.9 mmHg (75.0-100.0); BG PRESSURE SUPPORT 10; BG SAMPLE SITE A-LINE; BG TOTAL HEMOGLOBIN 12.1 g/dL (12.0-18.0); BG VENT MODE VENT - CPAP
[2019-02-17] MEDS: CEFAZOLIN 500MG in DEXTROSE 5% WATER 50ML IV SCH (17:35)
[2019-02-17] MEDS: NICARDIPINE 100 MG in SODIUM CHLORIDE 0.9% 60 ML IV PRN (20:24)
[2019-02-18] VITALS (107 sets, daily range): BP systolic 59–137; BP diastolic 26–81
[2019-02-18] MEDS: ATROPINE SULFATE 1MG/10ML SYR IV PRN (01:07)
[2019-02-18] MEDS: DEXAMETHASONE 4MG/ML 1ML VIAL IV SCH ×4 (01:49→20:30)
[2019-02-18 05:16] LABS: HEMATOCRIT. 31.9 % (42.0-52.0); HEMOGLOBIN. 10.8 g/dL (14.0-18.0); MEAN CORPUSCULAR HEMOGLOBIN 30.8 pg (28.0-32.0); MEAN CORPUSCULAR VOLUME 90.7 fL (80.0-94.0); MEAN PLATELET VOLUME 8.5 fl (7.4-10.4); PLATELET 252 x1000/uL (130-400); RED BLOOD CELL COUNT 3.51 mill/uL (4.7-6.1); RED CELL DISTRIBUTION WIDTH 14.2 % (11.6-14.6)
[2019-02-18 05:32] LABS: CREATINE KINASE MB FRACTION 4.6 ng/mL (0.5-3.6)
[2019-02-18] MEDS: BLOOD SUGAR DIAGNOSTIC STRIP TEST SCH ×4 (06:06→21:15)
[2019-02-18] MEDS: INSULIN LISPRO 100 UNITS/ML SUBCUT SCH ×4 (06:14→21:20)
[2019-02-18 07:53] LABS: PLATELET ESTIMATE NORMAL
[2019-02-18] MEDS: NICARDIPINE 100 MG in SODIUM CHLORIDE 0.9% 60 ML IV PRN (08:31)
[2019-02-18] MEDS: AMLODIPINE 5MG TABLET PO SCH ×2 (12:45→15:59)
[2019-02-18] MEDS: HYDRALAZINE HCL 50MG TABLET PO SCH ×2 (14:00→21:19)
[2019-02-18] MEDS: DEXT 5%/0.45% NACL 1000ML 1,000 ML IV SCH (16:00)
[2019-02-18] MEDS: CEFAZOLIN 500MG in DEXTROSE 5% WATER 50ML IV SCH (17:16)
[2019-02-18] MEDS: AMMONIUM LACTATE 12% LOTION 240ML TOP SCH (20:29)
[2019-02-18] MEDS: LATANOPROST 0.005% OPHTH DROPS 2.5ML EACHEYE SCH (20:30)
[2019-02-19] VITALS (15 sets, daily range): BP systolic 114–160; BP diastolic 22–96
[2019-02-19] MEDS: DEXAMETHASONE 4MG/ML 1ML VIAL IV SCH ×4 (02:08→20:01)
[2019-02-19] MEDS: HYDRALAZINE HCL 50MG TABLET PO SCH ×3 (06:15→21:39)
[2019-02-19] MEDS: BLOOD SUGAR DIAGNOSTIC STRIP TEST SCH ×4 (07:29→21:41)
[2019-02-19 08:11] LABS: HEMATOCRIT. 32.5 % (42.0-52.0); HEMOGLOBIN. 10.7 g/dL (14.0-18.0); MEAN CORPUSCULAR HEMOGLOBIN 30.2 pg (28.0-32.0); MEAN CORPUSCULAR VOLUME 91.8 fL (80.0-94.0); MEAN PLATELET VOLUME 8.5 fl (7.4-10.4); PLATELET 229 x1000/uL (130-400); RED BLOOD CELL COUNT 3.54 mill/uL (4.7-6.1); RED CELL DISTRIBUTION WIDTH 14.3 % (11.6-14.6)
[2019-02-19] MEDS: DEXT 5%/0.45% NACL 1000ML 1,000 ML IV SCH (08:46)
[2019-02-19] MEDS: AMLODIPINE 5MG TABLET PO SCH (08:46)
[2019-02-19] MEDS: INSULIN LISPRO 100 UNITS/ML SUBCUT SCH ×4 (08:46→21:35)
[2019-02-19 08:56] LABS: PHOSPHORUS 7.3 mg/dL (2.5-4.9)
[2019-02-19] MEDS: AMMONIUM LACTATE 12% LOTION 240ML TOP SCH ×2 (08:56→17:21)
[2019-02-19] MEDS ORDERED: NIFEDIPINE XL 30MG TAB PO SCH (09:00)
[2019-02-19] MEDS ORDERED: MAGNESIUM HYDROXIDE 400MG/5ML 30ML UDC PO PRN (13:30)
[2019-02-19 14:34] LABS: PLATELET ESTIMATE NORMAL
[2019-02-19] MEDS: CEFAZOLIN 500MG in DEXTROSE 5% WATER 50ML IV SCH (17:21)
[2019-02-19] MEDS: LATANOPROST 0.005% OPHTH DROPS 2.5ML EACHEYE SCH (20:10)
[2019-02-19] MEDS: ATROPINE SULFATE 1MG/10ML SYR IV PRN (23:12)
[2019-02-20] VITALS (12 sets, daily range): BP systolic 118–152; BP diastolic 39–71
[2019-02-20] MEDS: DEXAMETHASONE 4MG/ML 1ML VIAL IV SCH ×4 (02:11→20:49)
[2019-02-20] MEDS: HYDRALAZINE HCL 50MG TABLET PO SCH ×3 (06:53→22:14)
[2019-02-20] MEDS: BLOOD SUGAR DIAGNOSTIC STRIP TEST SCH ×4 (06:58→20:35)
[2019-02-20 07:09] LABS: HEMATOCRIT. 30.4 % (42.0-52.0); HEMOGLOBIN. 10.3 g/dL (14.0-18.0); MEAN CORPUSCULAR HEMOGLOBIN 30.9 pg (28.0-32.0); MEAN CORPUSCULAR VOLUME 91.4 fL (80.0-94.0); MEAN PLATELET VOLUME 8.8 fl (7.4-10.4); PLATELET 205 x1000/uL (130-400); RED BLOOD CELL COUNT 3.32 mill/uL (4.7-6.1); RED CELL DISTRIBUTION WIDTH 14.4 % (11.6-14.6)
[2019-02-20 07:21] LABS: PHOSPHORUS 6.2 mg/dL (2.5-4.9)
[2019-02-20 08:53] LABS: PLATELET ESTIMATE NORMAL
[2019-02-20] MEDS: NIFEDIPINE XL 30MG TAB PO SCH (09:00)
[2019-02-20] MEDS: INSULIN LISPRO 100 UNITS/ML SUBCUT SCH ×4 (09:05→20:49)
[2019-02-20] MEDS: AMMONIUM LACTATE 12% LOTION 240ML TOP SCH ×2 (09:06→16:54)
[2019-02-20] MEDS: CEFAZOLIN 500MG in DEXTROSE 5% WATER 50ML IV SCH (16:54)
[2019-02-20] MEDS: SEVELAMER CARBONATE 800 MG TABLET PO SCH (17:28)
[2019-02-20] MEDS: LATANOPROST 0.005% OPHTH DROPS 2.5ML EACHEYE SCH (20:50)
[2019-02-21] VITALS (12 sets, daily range): BP systolic 97–166; BP diastolic 41–92
[2019-02-21] MEDS: DEXAMETHASONE 4MG/ML 1ML VIAL IV SCH ×3 (01:37→13:25)
[2019-02-21] MEDS: BLOOD SUGAR DIAGNOSTIC STRIP TEST SCH ×4 (06:14→21:00)
[2019-02-21] MEDS: HYDRALAZINE HCL 50MG TABLET PO SCH ×3 (06:14→21:31)
[2019-02-21 07:25] LABS: HEMATOCRIT. 32.1 % (42.0-52.0); HEMOGLOBIN. 10.8 g/dL (14.0-18.0); MEAN CORPUSCULAR HEMOGLOBIN 30.6 pg (28.0-32.0); MEAN PLATELET VOLUME 8.7 fl (7.4-10.4); PLATELET 215 x1000/uL (130-400); RED BLOOD CELL COUNT 3.53 mill/uL (4.7-6.1); RED CELL DISTRIBUTION WIDTH 14.3 % (11.6-14.6)
[2019-02-21 07:44] LABS: PHOSPHORUS 7.1 mg/dL (2.5-4.9)
[2019-02-21] MEDS: SEVELAMER CARBONATE 800 MG TABLET PO SCH ×2 (08:41→18:22)
[2019-02-21] MEDS: INSULIN LISPRO 100 UNITS/ML SUBCUT SCH ×4 (08:45→21:32)
[2019-02-21] MEDS: NIFEDIPINE XL 30MG TAB PO SCH (08:45)
[2019-02-21] MEDS: AMMONIUM LACTATE 12% LOTION 240ML TOP SCH ×2 (08:46→18:22)
[2019-02-21 13:24] LABS: PLATELET ESTIMATE NORMAL
[2019-02-21] MEDS: CEFAZOLIN 500MG in DEXTROSE 5% WATER 50ML IV SCH (18:22)
[2019-02-21] MEDS ORDERED: EPOETIN ALFA 4000UNITS/ML VIAL SUBCUT SCH (21:00)
[2019-02-21] MEDS: THEOPHYLLINE ANHYDROUS 80 MG/15 ML 120ML PO SCH (21:30)
[2019-02-21] MEDS: LATANOPROST 0.005% OPHTH DROPS 2.5ML EACHEYE SCH (21:31)
[2019-02-22] VITALS (12 sets, daily range): BP systolic 116–159; BP diastolic 49–83
[2019-02-22] MEDS: DEXAMETHASONE 4MG/ML 1ML VIAL IV SCH ×2 (02:04→13:02)
[2019-02-22] MEDS: BLOOD SUGAR DIAGNOSTIC STRIP TEST SCH ×4 (06:16→21:00)
[2019-02-22] MEDS: HYDRALAZINE HCL 50MG TABLET PO SCH ×3 (06:16→22:03)
[2019-02-22 07:39] LABS: HEMOGLOBIN. 10.8 g/dL (14.0-18.0); MEAN CORPUSCULAR HEMOGLOBIN 30.5 pg (28.0-32.0); MEAN CORPUSCULAR VOLUME 90.8 fL (80.0-94.0); MEAN PLATELET VOLUME 8.6 fl (7.4-10.4); PLATELET 234 x1000/uL (130-400); RED BLOOD CELL COUNT 3.53 mill/uL (4.7-6.1); RED CELL DISTRIBUTION WIDTH 14.1 % (11.6-14.6)
[2019-02-22] MEDS: SEVELAMER CARBONATE 800 MG TABLET PO SCH ×3 (08:05→16:53)
[2019-02-22] MEDS: THEOPHYLLINE ANHYDROUS 80 MG/15 ML 120ML PO SCH ×2 (08:06→11:07)
[2019-02-22] MEDS: INSULIN LISPRO 100 UNITS/ML SUBCUT SCH ×4 (08:06→22:12)
[2019-02-22] MEDS: NIFEDIPINE XL 30MG TAB PO SCH ×3 (08:06→22:02)
[2019-02-22] MEDS: AMMONIUM LACTATE 12% LOTION 240ML TOP SCH ×2 (08:07→16:55)
[2019-02-22] MEDS: CEFAZOLIN 500MG in DEXTROSE 5% WATER 50ML IV SCH (17:06)
[2019-02-22 17:44] LABS: PLATELET ESTIMATE NORMAL
[2019-02-22] MEDS: LATANOPROST 0.005% OPHTH DROPS 2.5ML EACHEYE SCH (22:00)
[2019-02-23] VITALS (9 sets, daily range): BP systolic 111–147; BP diastolic 44–69
[2019-02-23] MEDS: THEOPHYLLINE ANHYDROUS 80 MG/15 ML 120ML PO SCH ×2 (01:07→14:25)
[2019-02-23] MEDS: DEXAMETHASONE 4MG/ML 1ML VIAL IV SCH ×2 (03:00→14:19)
[2019-02-23 06:30] LABS: HEMATOCRIT. 31.6 % (42.0-52.0); HEMOGLOBIN. 10.4 g/dL (14.0-18.0); MEAN CORPUSCULAR HEMOGLOBIN 29.8 pg (28.0-32.0); MEAN CORPUSCULAR VOLUME 91.2 fL (80.0-94.0); MEAN PLATELET VOLUME 8.7 fl (7.4-10.4); PLATELET 242 x1000/uL (130-400); RED BLOOD CELL COUNT 3.47 mill/uL (4.7-6.1); RED CELL DISTRIBUTION WIDTH 13.9 % (11.6-14.6)
[2019-02-23 07:05] LABS: PHOSPHORUS 5.1 mg/dL (2.5-4.9)
[2019-02-23] MEDS: HYDRALAZINE HCL 50MG TABLET PO SCH (07:49)
[2019-02-23] MEDS: BLOOD SUGAR DIAGNOSTIC STRIP TEST SCH ×2 (07:49→11:50)
[2019-02-23] MEDS: NIFEDIPINE XL 30MG TAB PO SCH (07:49)
[2019-02-23] MEDS: SEVELAMER CARBONATE 800 MG TABLET PO SCH ×2 (07:49→14:19)
[2019-02-23] MEDS: INSULIN LISPRO 100 UNITS/ML SUBCUT SCH ×2 (07:50→14:19)
[2019-02-23] MEDS: AMMONIUM LACTATE 12% LOTION 240ML TOP SCH ×2 (07:51→14:22)
[2019-02-23] MEDS ORDERED: HYDRALAZINE 20MG/ML VIAL IV PRN (10:30)
[2019-02-23] MEDS ORDERED: AMLODIPINE 5MG TABLET PO SCH (10:30)
[2019-02-23] MEDS ORDERED: APIXABAN 2.5 MG TABLET PO SCH (10:30)
[2019-02-23] MEDS ORDERED: HYDRALAZINE HCL 50MG TABLET PO SCH (14:00)
[2019-02-23 16:34] LABS: PLATELET ESTIMATE NORMAL
== END 2019-02-23 16:45 | DRG 471 ==
LOC: OR 05:23 → MICUSO 05:24 → 3WST 02-19 00:56
PROVIDERS: ADMIT Internal Medicine; ATTEND Internal Medicine
PROC: 0RG2071 Fusion of 2 or more Cervical Vertebral Joints with Autologous Tissue Substitute, Posterior Approach, Posterior Column, Open Approach (ICD-10-PCS; principal; 2019-02-16)
PROC: 4A11X4G Monitoring of Peripheral Nervous Electrical Activity, Intraoperative, External Approach (ICD-10-PCS; 2019-02-16)
PROC: 5A1D70Z Performance of Urinary Filtration, Intermittent, Less than 6 Hours Per Day (ICD-10-PCS; 2019-02-16)
PROC: 05H633Z Insertion of Infusion Device into Left Subclavian Vein, Percutaneous Approach (ICD-10-PCS; 2019-02-16)
PROC: B547ZZA Ultrasonography of Left Subclavian Vein, Guidance (ICD-10-PCS; 2019-02-16)
PROC: 5A1D70Z Performance of Urinary Filtration, Intermittent, Less than 6 Hours Per Day (ICD-10-PCS; 2019-02-17)
PROC: 5A1D70Z Performance of Urinary Filtration, Intermittent, Less than 6 Hours Per Day (ICD-10-PCS; 2019-02-18)
PROC: 5A1D70Z Performance of Urinary Filtration, Intermittent, Less than 6 Hours Per Day (ICD-10-PCS; 2019-02-20)
PROC: 5A1D70Z Performance of Urinary Filtration, Intermittent, Less than 6 Hours Per Day (ICD-10-PCS; 2019-02-22)
DX: M48.02 Spinal stenosis, cervical region (principal); G82.50 Quadriplegia, unspecified; N18.6 End stage renal disease; M47.12 Other spondylosis with myelopathy, cervical region; I50.30 Unspecified diastolic (congestive) heart failure; M86.60 Other chronic osteomyelitis, unspecified site; E87.1 Hypo-osmolality and hyponatremia; N25.81 Secondary hyperparathyroidism of renal origin; I13.2 Hypertensive heart and chronic kidney disease with heart failure and with stage 5 chronic kidney disease, or end stage renal disease; M50.00 Cervical disc disorder with myelopathy, unspecified cervical region; M50.10 Cervical disc disorder with radiculopathy, unspecified cervical region; M47.22 Other spondylosis with radiculopathy, cervical region; I27.20 Pulmonary hypertension, unspecified; I25.10 Atherosclerotic heart disease of native coronary artery without angina pectoris; E11.22 Type 2 diabetes mellitus with diabetic chronic kidney disease; D64.9 Anemia, unspecified; E11.40 Type 2 diabetes mellitus with diabetic neuropathy, unspecified; E11.69 Type 2 diabetes mellitus with other specified complication; H40.9 Unspecified glaucoma; I48.2 Chronic atrial fibrillation; K80.20 Calculus of gallbladder without cholecystitis without obstruction; D72.828 Other elevated white blood cell count; Z96.649 Presence of unspecified artificial hip joint; T38.0X5A Adverse effect of glucocorticoids and synthetic analogues, initial encounter; Y92.89 Other specified places as the place of occurrence of the external cause; Z79.01 Long term (current) use of anticoagulants; Z79.899 Other long term (current) drug therapy; Z82.49 Family history of ischemic heart disease and other diseases of the circulatory system; Z83.3 Family history of diabetes mellitus; Z99.2 Dependence on renal dialysis
CPT/HCPCS: 36415; 36600; 71045; 72040; 72141; 76000; 76937; 80048; 80061; 82375; 82550; 82553; 82805; 82962; 83036; 83735; 84100; 84439; 84443; 84478; 84484; 85027; 86850; 86900; 88304; 88311; 92610; 93005; 93306; 93970; 94003; 95925; 95926; 95928; 95929; 97116; 97163; 97166; 97530; 97535; C1713; C1725; J0360; J0461; J0690; J1100; J1170; J1815; J2250; J2405; J2704; J2710; J3010; J3490; J7040; J7050; J7060; L0172

== ENCOUNTER 2019-02-23 17:00 | Inpatient (IN) | payer MEDICARE, MEDICAID ==
[~2019-02-23] VITALS: Ht 189.2 cm; Wt 92.5 kg
[2019-02-23] MEDS ORDERED: ACETAMINOPHEN 650MG SUPP PR PRN (18:30)
[2019-02-23] MEDS ORDERED: DEXTROSE 50% WATER 50ML SYRINGE IV PRN (18:30)
[2019-02-23] MEDS ORDERED: DIPHENHYDRAMINE 12.5MG/5ML UDC PO PRN (18:30)
[2019-02-23] MEDS ORDERED: HYDRALAZINE HCL 10MG TABLET PO PRN (18:30)
[2019-02-23 20:00] VITALS: BP 150/52
[2019-02-23 20:30] VITALS: BP 150/52
[2019-02-23] MEDS ORDERED: EPOETIN ALFA 4000UNITS/ML VIAL SUBCUT SCH (21:00)
[2019-02-23] MEDS: BLOOD SUGAR DIAGNOSTIC STRIP TEST SCH (21:41)
[2019-02-23] MEDS: INSULIN LISPRO 100 UNITS/ML SUBCUT SCH (21:55)
[2019-02-23] MEDS: LATANOPROST 0.005% OPHTH DROPS 2.5ML BOTHEYE SCH (22:05)
[2019-02-23] MEDS: THEOPHYLLINE ANHYDROUS 80 MG/15 ML 120ML PO SCH (22:05)
[2019-02-24] MEDS: NIFEDIPINE XL 30MG TAB PO SCH ×3 (01:19→21:39)
[2019-02-24] MEDS: HYDRALAZINE HCL 50MG TABLET PO SCH ×4 (01:19→21:38)
[2019-02-24] MEDS: DEXAMETHASONE 4MG TABLET PO SCH ×3 (01:20→21:38)
[2019-02-24] MEDS: BLOOD SUGAR DIAGNOSTIC STRIP TEST SCH ×4 (06:25→21:40)
[2019-02-24] MEDS: INSULIN LISPRO 100 UNITS/ML SUBCUT SCH ×4 (06:51→21:55)
[2019-02-24 08:00] VITALS: BP 141/52
[2019-02-24] MEDS: SEVELAMER CARBONATE 800 MG TABLET PO SCH ×3 (08:55→17:17)
[2019-02-24] MEDS: THEOPHYLLINE ANHYDROUS 80 MG/15 ML 120ML PO SCH ×2 (09:07→21:40)
[2019-02-24] MEDS: AMMONIUM LACTATE 12% LOTION 240ML TOP SCH ×2 (09:09→17:18)
[2019-02-24] MEDS: ACETAMINOPHEN 650MG/20.3ML UDC PO PRN ×2 (13:13→22:00)
[2019-02-24 20:00] VITALS: BP 143/55
[2019-02-24] MEDS: LATANOPROST 0.005% OPHTH DROPS 2.5ML BOTHEYE SCH (21:39)
[2019-02-24] MEDS: MAGNESIUM HYDROXIDE 400MG/5ML 30ML UDC PO PRN (21:40)
[2019-02-25] MEDS: HYDRALAZINE HCL 50MG TABLET PO SCH ×3 (06:32→21:39)
[2019-02-25] MEDS: INSULIN LISPRO 100 UNITS/ML SUBCUT SCH ×4 (06:33→22:06)
[2019-02-25] MEDS: BLOOD SUGAR DIAGNOSTIC STRIP TEST SCH ×4 (06:33→21:39)
[2019-02-25 06:34] LABS: HEMATOCRIT. 29.4 % (42.0-52.0); MEAN CORPUSCULAR HEMOGLOBIN 30.8 pg (28.0-32.0); MEAN CORPUSCULAR VOLUME 91.1 fL (80.0-94.0); MEAN PLATELET VOLUME 7.7 fl (7.4-10.4); PLATELET 252 x1000/uL (130-400); RED BLOOD CELL COUNT 3.23 mill/uL (4.7-6.1); RED CELL DISTRIBUTION WIDTH 14.2 % (11.6-14.6)
[2019-02-25 06:41] LABS: CHLORIDE 97 mEq/L (98-107)
[2019-02-25 06:54] LABS: THEOPHYLLINE 7.8 ug/mL (10-20)
[2019-02-25 06:55] LABS: PHOSPHORUS 4.1 mg/dL (2.5-4.9)
[2019-02-25 08:00] VITALS: BP 140/54
[2019-02-25] MEDS: AMMONIUM LACTATE 12% LOTION 240ML TOP SCH ×2 (09:15→16:56)
[2019-02-25] MEDS: NIFEDIPINE XL 30MG TAB PO SCH ×2 (09:16→21:40)
[2019-02-25] MEDS: SEVELAMER CARBONATE 800 MG TABLET PO SCH ×3 (09:16→16:44)
[2019-02-25] MEDS: DEXAMETHASONE 4MG TABLET PO SCH (09:16)
[2019-02-25] MEDS: THEOPHYLLINE ANHYDROUS 80 MG/15 ML 120ML PO SCH ×2 (09:16→21:40)
[2019-02-25] MEDS: ACETAMINOPHEN 650MG/20.3ML UDC PO PRN ×2 (09:32→23:58)
[2019-02-25 09:42] LABS: PLATELET ESTIMATE NORMAL
[2019-02-25] MEDS: LACTULOSE 20G/30ML UDC PO SCH ×3 (11:52→21:35)
[2019-02-25] MEDS: MAGNESIUM HYDROXIDE 400MG/5ML 30ML UDC PO PRN (16:44)
[2019-02-25] MEDS: BISACODYL 5MG TABLET PO PRN (16:44)
[2019-02-25] MEDS: DOCUSATE SODIUM 100MG CAPSULE PO SCH (16:44)
[2019-02-25 20:00] VITALS: BP 119/58
[2019-02-25] MEDS: LATANOPROST 0.005% OPHTH DROPS 2.5ML BOTHEYE SCH (21:39)
[2019-02-25] MEDS: NA PHOS,M-B/NA PHOS,DI-BA ENEMA 118ML PR PRN (22:57)
[2019-02-25] MEDS: DEXAMETHASONE 2MG TABLET PO SCH (23:55)
[2019-02-26] MEDS: LACTULOSE 20G/30ML UDC PO SCH ×2 (06:00→14:00)
[2019-02-26] MEDS: HYDRALAZINE HCL 50MG TABLET PO SCH ×3 (06:09→21:27)
[2019-02-26] MEDS: INSULIN LISPRO 100 UNITS/ML SUBCUT SCH ×4 (06:12→20:49)
[2019-02-26] MEDS: BLOOD SUGAR DIAGNOSTIC STRIP TEST SCH ×4 (06:12→20:49)
[2019-02-26 07:41] LABS: HEMATOCRIT 29.5 % (42.0-52.0); MEAN CORPUSCULAR HEMOGLOBIN 31.1 pg (28.0-32.0); MEAN CORPUSCULAR VOLUME 91.4 fL (80.0-94.0); PLATELET 233 x1000/uL (130-400); RED BLOOD CELL COUNT 3.22 mill/uL (4.7-6.1); RED CELL DISTRIBUTION WIDTH 13.9 % (11.6-14.6)
[2019-02-26 07:52] LABS: INR 1.2; PROTHROMBIN TIME 12.3 sec (9.6-11.0)
[2019-02-26 08:05] VITALS: BP 150/60
[2019-02-26 08:05] LABS: PHOSPHORUS 3.2 mg/dL (2.5-4.9)
[2019-02-26] MEDS: ACETAMINOPHEN 650MG/20.3ML UDC PO PRN (09:33)
[2019-02-26] MEDS: DOCUSATE SODIUM 100MG CAPSULE PO SCH ×2 (09:33→17:01)
[2019-02-26] MEDS: SEVELAMER CARBONATE 800 MG TABLET PO SCH ×3 (09:33→17:01)
[2019-02-26] MEDS: DEXAMETHASONE 2MG TABLET PO SCH ×2 (09:33→20:48)
[2019-02-26] MEDS: NIFEDIPINE XL 30MG TAB PO SCH ×2 (09:34→20:48)
[2019-02-26] MEDS: THEOPHYLLINE ANHYDROUS 80 MG/15 ML 120ML PO SCH ×2 (09:35→20:48)
[2019-02-26] MEDS: AMMONIUM LACTATE 12% LOTION 240ML TOP SCH ×2 (09:35→17:03)
[2019-02-26] MEDS: APIXABAN 2.5 MG TABLET PO SCH (17:01)
[2019-02-26 20:00] VITALS: BP 127/64
[2019-02-26] MEDS: LATANOPROST 0.005% OPHTH DROPS 2.5ML BOTHEYE SCH (20:48)
[2019-02-27] MEDS: ACETAMINOPHEN 650MG/20.3ML UDC PO PRN (04:11)
[2019-02-27] MEDS: INSULIN LISPRO 100 UNITS/ML SUBCUT SCH ×4 (05:53→21:00)
[2019-02-27] MEDS: HYDRALAZINE HCL 50MG TABLET PO SCH ×3 (05:53→21:54)
[2019-02-27] MEDS: BLOOD SUGAR DIAGNOSTIC STRIP TEST SCH ×4 (05:53→21:00)
[2019-02-27 07:09] LABS: HEMATOCRIT 29.8 % (42.0-52.0); HEMOGLOBIN 9.9 g/dL (14.0-18.0); MEAN CORPUSCULAR HEMOGLOBIN 30.5 pg (28.0-32.0); MEAN CORPUSCULAR VOLUME 91.3 fL (80.0-94.0); PLATELET 243 x1000/uL (130-400); RED BLOOD CELL COUNT 3.26 mill/uL (4.7-6.1); RED CELL DISTRIBUTION WIDTH 13.9 % (11.6-14.6)
[2019-02-27 07:45] VITALS: BP 139/81
[2019-02-27] MEDS: THEOPHYLLINE ANHYDROUS 80 MG/15 ML 120ML PO SCH ×2 (08:33→21:57)
[2019-02-27] MEDS: DEXAMETHASONE 2MG TABLET PO SCH (08:33)
[2019-02-27] MEDS: NIFEDIPINE XL 30MG TAB PO SCH ×2 (08:34→21:53)
[2019-02-27] MEDS: SEVELAMER CARBONATE 800 MG TABLET PO SCH ×3 (08:34→16:21)
[2019-02-27] MEDS: APIXABAN 2.5 MG TABLET PO SCH ×2 (08:34→16:21)
[2019-02-27] MEDS: DOCUSATE SODIUM 100MG CAPSULE PO SCH ×2 (08:35→16:21)
[2019-02-27] MEDS: AMMONIUM LACTATE 12% LOTION 240ML TOP SCH ×3 (08:40→21:57)
[2019-02-27 20:00] VITALS: BP 112/59
[2019-02-27] MEDS: LATANOPROST 0.005% OPHTH DROPS 2.5ML BOTHEYE SCH (21:52)
[2019-02-27] MEDS: DEXAMETHASONE 1MG TABLET PO SCH (21:52)
[2019-02-28] MEDS: BLOOD SUGAR DIAGNOSTIC STRIP TEST SCH ×4 (06:26→21:00)
[2019-02-28] MEDS: HYDRALAZINE HCL 50MG TABLET PO SCH ×3 (06:26→22:00)
[2019-02-28 07:39] LABS: HEMATOCRIT 31.2 % (42.0-52.0); HEMOGLOBIN 10.3 g/dL (14.0-18.0); MEAN CORPUSCULAR HEMOGLOBIN 30.3 pg (28.0-32.0); MEAN CORPUSCULAR VOLUME 91.7 fL (80.0-94.0); PLATELET 242 x1000/uL (130-400); RED CELL DISTRIBUTION WIDTH 14.2 % (11.6-14.6)
[2019-02-28 08:06] VITALS: BP 135/43
[2019-02-28] MEDS: NIFEDIPINE XL 30MG TAB PO SCH ×2 (08:33→23:37)
[2019-02-28] MEDS: SEVELAMER CARBONATE 800 MG TABLET PO SCH ×3 (08:33→17:14)
[2019-02-28] MEDS: APIXABAN 2.5 MG TABLET PO SCH ×2 (08:33→17:14)
[2019-02-28] MEDS: DEXAMETHASONE 1MG TABLET PO SCH ×2 (08:33→22:15)
[2019-02-28] MEDS: DOCUSATE SODIUM 100MG CAPSULE PO SCH ×2 (08:33→17:14)
[2019-02-28] MEDS: THEOPHYLLINE ANHYDROUS 80 MG/15 ML 120ML PO SCH ×2 (08:34→22:16)
[2019-02-28] MEDS: AMMONIUM LACTATE 12% LOTION 240ML TOP SCH ×2 (08:34→21:00)
[2019-02-28] MEDS: INSULIN LISPRO 100 UNITS/ML SUBCUT SCH ×4 (08:40→21:00)
[2019-02-28] MEDS: ACETAMINOPHEN 650MG/20.3ML UDC PO PRN (08:41)
[2019-02-28] MEDS: TRAMADOL 50MG TABLET PO PRN (14:17)
[2019-02-28 20:00] VITALS: BP 134/65
[2019-02-28] MEDS: LATANOPROST 0.005% OPHTH DROPS 2.5ML BOTHEYE SCH (22:15)
[2019-03-01] MEDS: HYDRALAZINE HCL 50MG TABLET PO SCH ×3 (05:55→22:48)
[2019-03-01] MEDS: BLOOD SUGAR DIAGNOSTIC STRIP TEST SCH ×4 (05:56→21:09)
[2019-03-01] MEDS: INSULIN LISPRO 100 UNITS/ML SUBCUT SCH ×4 (05:59→21:00)
[2019-03-01 07:30] LABS: HEMATOCRIT. 28.7 % (42.0-52.0); HEMOGLOBIN. 9.7 g/dL (14.0-18.0); MEAN CORPUSCULAR HEMOGLOBIN 30.9 pg (28.0-32.0); MEAN CORPUSCULAR VOLUME 90.9 fL (80.0-94.0); MEAN PLATELET VOLUME 8.1 fl (7.4-10.4); PLATELET 213 x1000/uL (130-400); RED BLOOD CELL COUNT 3.15 mill/uL (4.7-6.1); RED CELL DISTRIBUTION WIDTH 14.2 % (11.6-14.6)
[2019-03-01 07:47] LABS: PHOSPHORUS 3.4 mg/dL (2.5-4.9)
[2019-03-01 07:50] LABS: THEOPHYLLINE 6.8 ug/mL (10-20)
[2019-03-01 07:53] VITALS: BP 118/83
[2019-03-01 08:13] VITALS: BP 148/63
[2019-03-01] MEDS: NIFEDIPINE XL 30MG TAB PO SCH ×2 (08:24→21:08)
[2019-03-01] MEDS: DOCUSATE SODIUM 100MG CAPSULE PO SCH ×2 (08:27→17:05)
[2019-03-01] MEDS: APIXABAN 2.5 MG TABLET PO SCH ×2 (08:27→17:05)
[2019-03-01] MEDS: TRAMADOL 50MG TABLET PO PRN ×3 (08:27→12:49)
[2019-03-01] MEDS: DEXAMETHASONE 1MG TABLET PO SCH (08:27)
[2019-03-01] MEDS: SEVELAMER CARBONATE 800 MG TABLET PO SCH ×3 (08:27→17:05)
[2019-03-01] MEDS: THEOPHYLLINE ANHYDROUS 80 MG/15 ML 120ML PO SCH ×2 (08:28→21:09)
[2019-03-01] MEDS: AMMONIUM LACTATE 12% LOTION 240ML TOP SCH ×2 (08:32→21:08)
[2019-03-01] MEDS ORDERED: LEVOFLOXACIN 500MG PREMIX 100 ML IV NR (13:00)
[2019-03-01 16:08] LABS: PLATELET ESTIMATE NORMAL
[2019-03-01 20:00] VITALS: BP 161/66
[2019-03-01] MEDS: LATANOPROST 0.005% OPHTH DROPS 2.5ML BOTHEYE SCH (21:08)
[2019-03-02] MEDS: HYDRALAZINE HCL 50MG TABLET PO SCH ×3 (06:04→22:00)
[2019-03-02] MEDS: BLOOD SUGAR DIAGNOSTIC STRIP TEST SCH ×4 (06:05→21:00)
[2019-03-02] MEDS: INSULIN LISPRO 100 UNITS/ML SUBCUT SCH ×4 (06:05→21:00)
[2019-03-02 07:03] LABS: HEMATOCRIT 29.6 % (42.0-52.0); MEAN CORPUSCULAR HEMOGLOBIN 30.8 pg (28.0-32.0); MEAN CORPUSCULAR VOLUME 91.2 fL (80.0-94.0); PLATELET 200 x1000/uL (130-400); RED BLOOD CELL COUNT 3.25 mill/uL (4.7-6.1); RED CELL DISTRIBUTION WIDTH 14.1 % (11.6-14.6)
[2019-03-02 08:00] VITALS: BP 160/52
[2019-03-02] MEDS: THEOPHYLLINE ANHYDROUS 80 MG/15 ML 120ML PO SCH (09:00)
[2019-03-02] MEDS: NIFEDIPINE XL 30MG TAB PO SCH ×2 (09:00→21:00)
[2019-03-02] MEDS: APIXABAN 2.5 MG TABLET PO SCH ×2 (09:14→16:47)
[2019-03-02] MEDS: DOCUSATE SODIUM 100MG CAPSULE PO SCH ×2 (09:14→16:47)
[2019-03-02] MEDS: SEVELAMER CARBONATE 800 MG TABLET PO SCH ×3 (09:30→16:47)
[2019-03-02] MEDS: DEXAMETHASONE 1MG TABLET PO SCH (09:30)
[2019-03-02] MEDS: AMMONIUM LACTATE 12% LOTION 240ML TOP SCH (09:31)
[2019-03-02] MEDS: TRAMADOL 50MG TABLET PO PRN ×2 (09:33→18:18)
[2019-03-02 20:00] VITALS: BP 165/53
[2019-03-03] MEDS: THEOPHYLLINE ANHYDROUS 80 MG/15 ML 120ML PO SCH ×3 (00:33→21:34)
[2019-03-03] MEDS: AMMONIUM LACTATE 12% LOTION 240ML TOP SCH ×3 (00:34→21:35)
[2019-03-03] MEDS: LATANOPROST 0.005% OPHTH DROPS 2.5ML BOTHEYE SCH ×2 (00:35→21:35)
[2019-03-03] MEDS: HYDRALAZINE HCL 50MG TABLET PO SCH (06:17)
[2019-03-03] MEDS: BLOOD SUGAR DIAGNOSTIC STRIP TEST SCH ×4 (06:17→21:31)
[2019-03-03 08:08] VITALS: BP 144/28
[2019-03-03] MEDS: INSULIN LISPRO 100 UNITS/ML SUBCUT SCH ×4 (09:00→21:00)
[2019-03-03] MEDS: NIFEDIPINE XL 30MG TAB PO SCH ×2 (09:33→21:36)
[2019-03-03] MEDS: DEXAMETHASONE 1MG TABLET PO SCH (09:34)
[2019-03-03] MEDS: DOCUSATE SODIUM 100MG CAPSULE PO SCH ×2 (09:34→16:51)
[2019-03-03] MEDS: SEVELAMER CARBONATE 800 MG TABLET PO SCH ×3 (09:34→16:50)
[2019-03-03] MEDS: APIXABAN 2.5 MG TABLET PO SCH ×2 (09:34→16:50)
[2019-03-03] MEDS: TRAMADOL 50MG TABLET PO PRN (09:38)
[2019-03-03] MEDS: LEVOFLOXACIN 250MG PREMIX 50 ML IV SCH (13:26)
[2019-03-03] MEDS: HYDRALAZINE HCL 100MG TABLET PO SCH ×2 (13:26→21:37)
[2019-03-03] MEDS: ACETAMINOPHEN 650MG/20.3ML UDC PO PRN (13:42)
[2019-03-03 20:00] VITALS: BP 133/51
[2019-03-04] MEDS: INSULIN LISPRO 100 UNITS/ML SUBCUT SCH ×4 (05:50→21:00)
[2019-03-04] MEDS: BLOOD SUGAR DIAGNOSTIC STRIP TEST SCH ×4 (05:50→21:21)
[2019-03-04] MEDS: HYDRALAZINE HCL 100MG TABLET PO SCH ×3 (05:53→22:56)
[2019-03-04 07:58] LABS: HEMATOCRIT. 25.7 % (42.0-52.0); HEMOGLOBIN. 8.9 g/dL (14.0-18.0); MEAN CORPUSCULAR HEMOGLOBIN 31.8 pg (28.0-32.0); MEAN CORPUSCULAR VOLUME 91.9 fL (80.0-94.0); MEAN PLATELET VOLUME 8.4 fl (7.4-10.4); PLATELET 150 x1000/uL (130-400); RED CELL DISTRIBUTION WIDTH 14.4 % (11.6-14.6)
[2019-03-04 08:09] LABS: PHOSPHORUS 3.8 mg/dL (2.5-4.9)
[2019-03-04 08:20] VITALS: BP 138/53
[2019-03-04] MEDS: APIXABAN 2.5 MG TABLET PO SCH ×2 (09:03→16:24)
[2019-03-04] MEDS: TRAMADOL 50MG TABLET PO PRN (09:03)
[2019-03-04] MEDS: DOCUSATE SODIUM 100MG CAPSULE PO SCH ×2 (09:03→16:24)
[2019-03-04] MEDS: SEVELAMER CARBONATE 800 MG TABLET PO SCH ×3 (09:03→16:24)
[2019-03-04] MEDS: NIFEDIPINE XL 30MG TAB PO SCH ×2 (09:04→22:56)
[2019-03-04] MEDS: AMMONIUM LACTATE 12% LOTION 240ML TOP SCH ×2 (09:05→21:21)
[2019-03-04] MEDS: THEOPHYLLINE ANHYDROUS 80 MG/15 ML 120ML PO SCH ×2 (09:09→21:22)
[2019-03-04 20:00] VITALS: BP_SYST 158; BP_DIAS 7; BP_DIAS 70
[2019-03-04] MEDS ORDERED: EPOETIN ALFA 4000UNITS/ML VIAL SUBCUT SCH (21:00)
[2019-03-04] MEDS: LATANOPROST 0.005% OPHTH DROPS 2.5ML BOTHEYE SCH (21:22)
[2019-03-05] MEDS: BISACODYL 5MG TABLET PO PRN (06:15)
[2019-03-05] MEDS: BLOOD SUGAR DIAGNOSTIC STRIP TEST SCH ×4 (06:15→21:10)
[2019-03-05] MEDS: HYDRALAZINE HCL 100MG TABLET PO SCH ×3 (06:26→21:48)
[2019-03-05] MEDS: INSULIN LISPRO 100 UNITS/ML SUBCUT SCH ×4 (06:26→21:00)
[2019-03-05 06:48] LABS: ATYPICAL LYMPHOCYTES 1; PLATELET ESTIMATE NORMAL
[2019-03-05 07:55] VITALS: BP 159/43
[2019-03-05] MEDS: AMMONIUM LACTATE 12% LOTION 240ML TOP SCH ×2 (09:20→21:02)
[2019-03-05] MEDS: NIFEDIPINE XL 30MG TAB PO SCH (09:20)
[2019-03-05] MEDS: THEOPHYLLINE ANHYDROUS 80 MG/15 ML 120ML PO SCH ×2 (09:20→21:44)
[2019-03-05] MEDS: DOCUSATE SODIUM 100MG CAPSULE PO SCH ×2 (09:20→16:33)
[2019-03-05] MEDS: APIXABAN 2.5 MG TABLET PO SCH ×2 (09:20→16:33)
[2019-03-05 09:29] LABS: HEMATOCRIT. 26.3 % (42.0-52.0); HEMOGLOBIN. 8.6 g/dL (14.0-18.0); MEAN CORPUSCULAR VOLUME 94.4 fL (80.0-94.0); MEAN PLATELET VOLUME 8.1 fl (7.4-10.4); PLATELET 140 x1000/uL (130-400); RED BLOOD CELL COUNT 2.79 mill/uL (4.7-6.1); RED CELL DISTRIBUTION WIDTH 14.9 % (11.6-14.6)
[2019-03-05] MEDS: SEVELAMER CARBONATE 800 MG TABLET PO SCH ×3 (09:31→16:33)
[2019-03-05 09:52] LABS: PHOSPHORUS 2.9 mg/dL (2.5-4.9)
[2019-03-05 10:36] LABS: PLATELET ESTIMATE NORMAL
[2019-03-05] MEDS: LEVOFLOXACIN 250MG PREMIX 50 ML IV SCH (11:35)
[2019-03-05] MEDS ORDERED: GUAIFENESIN-DM 200MG-20MG/10ML UDC PO PRN (17:30)
[2019-03-05] MEDS: NIFEDIPINE XL 60MG TAB PO SCH (21:01)
[2019-03-05] MEDS: LATANOPROST 0.005% OPHTH DROPS 2.5ML BOTHEYE SCH (21:02)
[2019-03-06 06:18] LABS: HEMATOCRIT. 25.9 % (42.0-52.0); HEMOGLOBIN. 8.7 g/dL (14.0-18.0); MEAN CORPUSCULAR VOLUME 92.2 fL (80.0-94.0); MEAN PLATELET VOLUME 7.9 fl (7.4-10.4); PLATELET 121 x1000/uL (130-400); RED BLOOD CELL COUNT 2.81 mill/uL (4.7-6.1); RED CELL DISTRIBUTION WIDTH 14.3 % (11.6-14.6)
[2019-03-06] MEDS: HYDRALAZINE HCL 100MG TABLET PO SCH ×3 (06:21→22:39)
[2019-03-06] MEDS: BLOOD SUGAR DIAGNOSTIC STRIP TEST SCH ×4 (06:21→21:30)
[2019-03-06] MEDS: INSULIN LISPRO 100 UNITS/ML SUBCUT SCH ×4 (06:22→21:00)
[2019-03-06 06:31] LABS: PHOSPHORUS 3.3 mg/dL (2.5-4.9)
[2019-03-06 08:00] VITALS: BP 132/72
[2019-03-06] MEDS: NIFEDIPINE XL 60MG TAB PO SCH ×2 (08:00→21:30)
[2019-03-06] MEDS: APIXABAN 2.5 MG TABLET PO SCH ×2 (08:00→17:00)
[2019-03-06] MEDS: DOCUSATE SODIUM 100MG CAPSULE PO SCH ×2 (08:00→17:00)
[2019-03-06] MEDS: SEVELAMER CARBONATE 800 MG TABLET PO SCH ×3 (08:00→17:00)
[2019-03-06] MEDS: THEOPHYLLINE ANHYDROUS 80 MG/15 ML 120ML PO SCH ×2 (08:01→21:32)
[2019-03-06] MEDS: AMMONIUM LACTATE 12% LOTION 240ML TOP SCH ×2 (08:01→21:31)
[2019-03-06 10:30] LABS: PLATELET ESTIMATE SLIGHTLY DECREASED
[2019-03-06] MEDS: NA PHOS,M-B/NA PHOS,DI-BA ENEMA 118ML PR PRN (20:07)
[2019-03-06 20:52] VITALS: BP 136/64
[2019-03-06] MEDS: LATANOPROST 0.005% OPHTH DROPS 2.5ML BOTHEYE SCH (21:29)
[2019-03-06] MEDS: ACETAMINOPHEN 650MG/20.3ML UDC PO PRN (22:40)
[2019-03-07 01:30] VITALS: BP 129/66
[2019-03-07] MEDS: MAGNESIUM HYDROXIDE 400MG/5ML 30ML UDC PO PRN (01:36)
[2019-03-07] MEDS: HYDRALAZINE HCL 100MG TABLET PO SCH ×3 (05:54→22:00)
[2019-03-07] MEDS: BLOOD SUGAR DIAGNOSTIC STRIP TEST SCH ×4 (05:54→21:00)
[2019-03-07] MEDS: ACETAMINOPHEN 650MG/20.3ML UDC PO PRN (05:54)
[2019-03-07] MEDS: INSULIN LISPRO 100 UNITS/ML SUBCUT SCH ×4 (05:55→21:00)
[2019-03-07 07:00] LABS: HEMATOCRIT 22.9 % (42.0-52.0); HEMOGLOBIN 7.7 g/dL (14.0-18.0); MEAN CORPUSCULAR HEMOGLOBIN 31.1 pg (28.0-32.0); MEAN CORPUSCULAR VOLUME 92.3 fL (80.0-94.0); PLATELET 110 x1000/uL (130-400); RED BLOOD CELL COUNT 2.48 mill/uL (4.7-6.1)
[2019-03-07 07:27] LABS: PHOSPHORUS 3.1 mg/dL (2.5-4.9)
[2019-03-07 08:25] VITALS: BP 137/51
[2019-03-07] MEDS: SEVELAMER CARBONATE 800 MG TABLET PO SCH ×3 (08:56→18:05)
[2019-03-07] MEDS: APIXABAN 2.5 MG TABLET PO SCH ×2 (08:56→18:05)
[2019-03-07] MEDS: NIFEDIPINE XL 60MG TAB PO SCH ×2 (08:57→21:00)
[2019-03-07] MEDS: DOCUSATE SODIUM 100MG CAPSULE PO SCH ×2 (09:00→18:05)
[2019-03-07] MEDS: TRAMADOL 50MG TABLET PO PRN ×2 (09:00→14:51)
[2019-03-07] MEDS: THEOPHYLLINE ANHYDROUS 80 MG/15 ML 120ML PO SCH (09:04)
[2019-03-07] MEDS: AMMONIUM LACTATE 12% LOTION 240ML TOP SCH (09:05)
[2019-03-07] MEDS: LEVOFLOXACIN 250MG TABLET PO SCH (11:23)
[2019-03-07] MEDS: ONDANSETRON 4MG ODT PO PRN (17:25)
[2019-03-07 20:00] VITALS: BP 139/64
[2019-03-08] MEDS: AMMONIUM LACTATE 12% LOTION 240ML TOP SCH ×3 (00:48→22:17)
[2019-03-08] MEDS: LATANOPROST 0.005% OPHTH DROPS 2.5ML BOTHEYE SCH ×2 (00:49→22:17)
[2019-03-08] MEDS: EPOETIN ALFA 10000UNITS/ML VIAL SUBCUT SCH (00:49)
[2019-03-08] MEDS: THEOPHYLLINE ANHYDROUS 80 MG/15 ML 120ML PO SCH ×2 (00:50→09:20)
[2019-03-08] MEDS: INSULIN LISPRO 100 UNITS/ML SUBCUT SCH ×4 (05:54→21:00)
[2019-03-08] MEDS: HYDRALAZINE HCL 100MG TABLET PO SCH ×3 (05:54→22:00)
[2019-03-08] MEDS: BLOOD SUGAR DIAGNOSTIC STRIP TEST SCH ×4 (05:54→21:00)
[2019-03-08 06:54] LABS: HEMATOCRIT. 21.8 % (42.0-52.0); HEMOGLOBIN. 7.3 g/dL (14.0-18.0); MEAN CORPUSCULAR HEMOGLOBIN 31.1 pg (28.0-32.0); MEAN CORPUSCULAR VOLUME 92.5 fL (80.0-94.0); PLATELET 105 x1000/uL (130-400); RED BLOOD CELL COUNT 2.36 mill/uL (4.7-6.1); RED CELL DISTRIBUTION WIDTH 14.9 % (11.6-14.6)
[2019-03-08 06:56] LABS: PHOSPHORUS 2.5 mg/dL (2.5-4.9)
[2019-03-08] MEDS: TRAMADOL 50MG TABLET PO PRN ×2 (08:02→13:37)
[2019-03-08] MEDS: ONDANSETRON 4MG ODT PO PRN (08:02)
[2019-03-08] MEDS: DOCUSATE SODIUM 100MG CAPSULE PO SCH ×2 (08:02→16:06)
[2019-03-08] MEDS: NIFEDIPINE XL 60MG TAB PO SCH ×2 (08:02→22:18)
[2019-03-08] MEDS: SEVELAMER CARBONATE 800 MG TABLET PO SCH ×3 (08:02→16:06)
[2019-03-08] MEDS: APIXABAN 2.5 MG TABLET PO SCH ×2 (08:02→16:06)
[2019-03-08 08:19] VITALS: BP 142/49
[2019-03-08 14:50] VITALS: BP 132/46
[2019-03-08 16:45] LABS: PLATELET ESTIMATE DECREASED
[2019-03-08 19:39] LABS: TOTAL IRON BINDING CAPACITY 125 ug/dL (250-450)
[2019-03-08 20:00] VITALS: BP 164/52
[2019-03-08] MEDS ORDERED: EPOETIN ALFA 10000UNITS/ML VIAL SUBCUT NR (21:00)
[2019-03-09] MEDS: HYDRALAZINE HCL 100MG TABLET PO SCH ×3 (05:43→21:12)
[2019-03-09] MEDS: BLOOD SUGAR DIAGNOSTIC STRIP TEST SCH ×4 (05:44→21:13)
[2019-03-09] MEDS: INSULIN LISPRO 100 UNITS/ML SUBCUT SCH (07:00)
[2019-03-09 07:39] LABS: BASOPHILS % 1.1 % (0.0-2.0); EOSINOPHILS % 1.6 % (0.0-5.0); HEMATOCRIT. 22.7 % (42.0-52.0); HEMOGLOBIN. 7.4 g/dL (14.0-18.0); LYMPHOCYTES % 7.5 % (20.0-50.0); MEAN CORPUSCULAR HEMOGLOBIN 30.8 pg (28.0-32.0); MEAN CORPUSCULAR VOLUME 94.1 fL (80.0-94.0); MEAN PLATELET VOLUME 8.4 fl (7.4-10.4); MONOCYTES % 6.8 % (2.0-8.0); PLATELET 102 x1000/uL (130-400); RED BLOOD CELL COUNT 2.41 mill/uL (4.7-6.1); RED CELL DISTRIBUTION WIDTH 15.2 % (11.6-14.6)
[2019-03-09 07:51] VITALS: BP 135/51
[2019-03-09 08:00] VITALS: BP 135/51
[2019-03-09 08:32] LABS: THEOPHYLLINE 5.6 ug/mL (10-20)
[2019-03-09 08:36] LABS: PHOSPHORUS 3.2 mg/dL (2.5-4.9)
[2019-03-09] MEDS: DOCUSATE SODIUM 100MG CAPSULE PO SCH ×2 (09:08→16:40)
[2019-03-09] MEDS: AMMONIUM LACTATE 12% LOTION 240ML TOP SCH ×2 (09:08→21:12)
[2019-03-09] MEDS: SEVELAMER CARBONATE 800 MG TABLET PO SCH ×3 (09:08→16:40)
[2019-03-09] MEDS: APIXABAN 2.5 MG TABLET PO SCH ×2 (09:08→16:40)
[2019-03-09] MEDS: NIFEDIPINE XL 60MG TAB PO SCH ×2 (09:08→21:00)
[2019-03-09] MEDS: LEVOFLOXACIN 250MG TABLET PO SCH (11:43)
[2019-03-09] MEDS: ONDANSETRON 4MG ODT PO PRN (14:04)
[2019-03-09 20:00] VITALS: BP 101/46
[2019-03-09] MEDS: EPOETIN ALFA 10000UNITS/ML VIAL SUBCUT SCH (21:13)
[2019-03-09] MEDS: LATANOPROST 0.005% OPHTH DROPS 2.5ML BOTHEYE SCH (21:13)
[2019-03-09] MEDS ORDERED: TRAMADOL 50MG TABLET PO PRN (23:45)
[2019-03-10] MEDS ORDERED: IRON SUCROSE COMPLEX 100 MG in SODIUM CHLORIDE 0.9% 100 ML IV SCH (05:00)
[2019-03-10] MEDS: HYDRALAZINE HCL 100MG TABLET PO SCH (05:10)
[2019-03-10] MEDS: BLOOD SUGAR DIAGNOSTIC STRIP TEST SCH (05:52)
[2019-03-10 06:56] LABS: BASOPHILS % 0.9 % (0.0-2.0); EOSINOPHILS % 2.5 % (0.0-5.0); HEMATOCRIT. 21.6 % (42.0-52.0); HEMOGLOBIN. 7.1 g/dL (14.0-18.0); LYMPHOCYTES % 9.4 % (20.0-50.0); MEAN CORPUSCULAR HEMOGLOBIN 30.9 pg (28.0-32.0); MEAN CORPUSCULAR VOLUME 93.3 fL (80.0-94.0); MEAN PLATELET VOLUME 9.2 fl (7.4-10.4); MONOCYTES % 8.2 % (2.0-8.0); PLATELET 117 x1000/uL (130-400); RED BLOOD CELL COUNT 2.31 mill/uL (4.7-6.1)
[2019-03-10 07:23] LABS: PHOSPHORUS 2.4 mg/dL (2.5-4.9)
[2019-03-10 07:55] VITALS: BP 122/40
[2019-03-10 08:07] VITALS: BP 122/40
[2019-03-10] MEDS: DOCUSATE SODIUM 100MG CAPSULE PO SCH (08:14)
[2019-03-10] MEDS: AMMONIUM LACTATE 12% LOTION 240ML TOP SCH (08:14)
[2019-03-10] MEDS: SEVELAMER CARBONATE 800 MG TABLET PO SCH (08:14)
[2019-03-10] MEDS: NIFEDIPINE XL 60MG TAB PO SCH (08:14)
[2019-03-10] MEDS: APIXABAN 2.5 MG TABLET PO SCH (08:14)
[2019-03-10 10:13] LABS: BG BASE EXCESS 1.1 mmol/L (-2.0-2.0); BG CARBOXYHEMOGLOBIN 0.6 % (0.5-1.5); BG DEOXYHEMOGLOBIN 32.8 % (0.0-5.0); BG FRACTION INSPIRED OXYGEN 21; BG HCO3 ACT 25.9 mmol/L (22.0-26.0); BG METHEMOGLOBIN 0.1 % (0.0-1.5); BG OXYHEMOGLOBIN 66.5 % (94.0-97.0); BG PH 7.408 (7.350-7.450); BG PO2 38.4 mmHg (75.0-100.0); BG SAMPLE SITE RIGHT BRACHIAL; BG TOTAL HEMOGLOBIN 7.1 g/dL (12.0-18.0); BG VENT MODE ROOM AIR
[2019-03-10 10:37] VITALS: BP 157/98
[2019-03-10] MEDS ORDERED: EPOETIN ALFA 10000UNITS/ML VIAL SUBCUT SCH (21:00)
== END 2019-03-10 11:15 | disposition short-term general hospital (02) | DRG 551 ==
PROVIDERS: ADMIT Psychiatry & Neurology Neurology; ATTEND Internal Medicine
DX: M50.00 Cervical disc disorder with myelopathy, unspecified cervical region (principal); G82.50 Quadriplegia, unspecified; N18.6 End stage renal disease; M86.60 Other chronic osteomyelitis, unspecified site; I50.30 Unspecified diastolic (congestive) heart failure; I13.2 Hypertensive heart and chronic kidney disease with heart failure and with stage 5 chronic kidney disease, or end stage renal disease; E11.52 Type 2 diabetes mellitus with diabetic peripheral angiopathy with gangrene; E46 Unspecified protein-calorie malnutrition; N25.81 Secondary hyperparathyroidism of renal origin; M48.02 Spinal stenosis, cervical region; E11.22 Type 2 diabetes mellitus with diabetic chronic kidney disease; E11.40 Type 2 diabetes mellitus with diabetic neuropathy, unspecified; I25.10 Atherosclerotic heart disease of native coronary artery without angina pectoris; I48.91 Unspecified atrial fibrillation; R00.1 Bradycardia, unspecified; I27.20 Pulmonary hypertension, unspecified; T38.0X5A Adverse effect of glucocorticoids and synthetic analogues, initial encounter; D50.9 Iron deficiency anemia, unspecified; D69.6 Thrombocytopenia, unspecified; D72.829 Elevated white blood cell count, unspecified; E11.42 Type 2 diabetes mellitus with diabetic polyneuropathy; E11.69 Type 2 diabetes mellitus with other specified complication; F06.8 Other specified mental disorders due to known physiological condition; F32.9 Major depressive disorder, single episode, unspecified; F41.9 Anxiety disorder, unspecified; K59.00 Constipation, unspecified; K80.20 Calculus of gallbladder without cholecystitis without obstruction; M47.812 Spondylosis without myelopathy or radiculopathy, cervical region; M50.90 Cervical disc disorder, unspecified, unspecified cervical region; R04.0 Epistaxis; Z96.649 Presence of unspecified artificial hip joint; Z79.01 Long term (current) use of anticoagulants; Z99.2 Dependence on renal dialysis; Z98.1 Arthrodesis status
CPT/HCPCS: 36415; 36600; 71045; 73110; 74018; 74022; 80048; 80198; 82140; 82375; 82805; 82962; 83540; 83550; 83735; 84100; 84145; 84550; 85027; 85044; 86850; 86900; 86920; 92523; 92610; 93005; 97110; 97112; 97116; 97150; 97162; 97166; 97530; 97535; J0885; J1815; J1956; J7040; J7050; J8540; L0172; Q0162

== ENCOUNTER 2019-03-10 11:30 | Inpatient (IN) | payer MEDICARE, MEDICAID ==
[~2019-03-10] VITALS: Ht 188 cm; Wt 98.9 kg
[2019-03-10 12:00] VITALS: BP 145/56
[2019-03-10 14:00] VITALS: BP 115/60
[2019-03-10] MEDS ORDERED: PIPERACILLIN/TAZ 2.25G PREMIX 50 ML IV SCH (14:15)
[2019-03-10] MEDS ORDERED: MAGNESIUM/ALUMINUM HYDROXIDE/SIMETHICONE 30ML UDC PO PRN (15:00)
[2019-03-10] MEDS ORDERED: HYDROCODONE/ACETAMINOPHEN 5/325MG TABLET PO PRN (15:00)
[2019-03-10] MEDS ORDERED: ONDANSETRON HCL 4MG/2ML INJ IV PRN (15:00)
[2019-03-10] MEDS ORDERED: LORAZEPAM 0.5MG TABLET PO PRN (15:00)
[2019-03-10] MEDS ORDERED: GUAIFENESIN 200MG/10ML SUGAR FREE UDC PO PRN (15:00)
[2019-03-10] MEDS ORDERED: LACTULOSE 20G/30ML UDC PO SCH (15:00)
[2019-03-10] MEDS ORDERED: ACETAMINOPHEN 650MG SUPP PR PRN (15:00)
[2019-03-10] MEDS ORDERED: DOCUSATE SODIUM 100MG CAPSULE PO PRN (15:00)
[2019-03-10] MEDS ORDERED: ACETAMINOPHEN 325MG TABLET PO PRN (15:00)
[2019-03-10] MEDS ORDERED: CLONIDINE 0.1MG TABLET PO PRN (15:00)
[2019-03-10] MEDS ORDERED: DIPHENHYDRAMINE 50MG/ML VIAL IV PRN (15:00)
[2019-03-10] MEDS ORDERED: DEXTROSE 50% WATER 50ML SYRINGE IV PRN (15:15)
[2019-03-10 16:00] VITALS: BP 129/58
[2019-03-10] MEDS: PIPERACILLIN/TAZ 2.25G PREMIX 50 ML IV SCH ×2 (16:10→23:55)
[2019-03-10] MEDS: BLOOD SUGAR DIAGNOSTIC STRIP TEST SCH ×2 (16:32→21:00)
[2019-03-10] MEDS ORDERED: APIXABAN 2.5 MG TABLET PO SCH (17:00)
[2019-03-10 18:00] VITALS: BP 118/55
[2019-03-10] MEDS ORDERED: VANCOMYCIN 2,000 MG in DEXT 5% WATER 500 ML IV SCH (18:00)
[2019-03-10 20:00] VITALS: BP 124/51
[2019-03-10 22:00] VITALS: BP 127/31
[2019-03-11] VITALS (17 sets, daily range): BP systolic 60–136; BP diastolic 37–87
[2019-03-11 05:52] LABS: BASOPHILS % 0.8 % (0.0-2.0); EOSINOPHILS % 3.4 % (0.0-5.0); HEMATOCRIT. 23.2 % (42.0-52.0); HEMOGLOBIN. 7.7 g/dL (14.0-18.0); LYMPHOCYTES % 7.6 % (20.0-50.0); MEAN CORPUSCULAR HEMOGLOBIN 30.5 pg (28.0-32.0); MEAN CORPUSCULAR VOLUME 92.3 fL (80.0-94.0); MEAN PLATELET VOLUME 8.3 fl (7.4-10.4); MONOCYTES % 7.5 % (2.0-8.0); NEUTROPHILS % 80.7 % (40.0-76.0); PLATELET 139 x1000/uL (130-400); RED BLOOD CELL COUNT 2.51 mill/uL (4.7-6.1); RED CELL DISTRIBUTION WIDTH 15.4 % (11.6-14.6)
[2019-03-11] MEDS: PIPERACILLIN/TAZ 2.25G PREMIX 50 ML IV SCH ×3 (05:59→22:00)
[2019-03-11 06:15] LABS: CHLORIDE 109 mEq/L (98-107)
[2019-03-11 06:39] LABS: LDL CHOLESTEROL 48 mg/dL (5-100)
[2019-03-11 06:42] LABS: HDL CHOLESTEROL 32 mg/dL (40-59)
[2019-03-11] MEDS: BLOOD SUGAR DIAGNOSTIC STRIP TEST SCH ×4 (08:17→21:00)
[2019-03-11] MEDS: IRON SUCROSE COMPLEX 100 MG/5 ML ML IV SCH (08:18)
[2019-03-11] MEDS ORDERED: VANCOMYCIN 1 G PREMIX 200 ML IV SCH (11:00)
[2019-03-11] MEDS ORDERED: APIXABAN 2.5 MG TABLET PO SCH (14:00)
[2019-03-11] MEDS: APIXABAN 2.5 MG TABLET PO SCH (21:59)
[2019-03-12] VITALS (21 sets, daily range): BP systolic 54–149; BP diastolic 18–74
[2019-03-12] MEDS: PIPERACILLIN/TAZ 2.25G PREMIX 50 ML IV SCH ×3 (06:36→21:36)
[2019-03-12] MEDS: BLOOD SUGAR DIAGNOSTIC STRIP TEST SCH ×4 (07:30→21:00)
[2019-03-12 08:47] LABS: BASOPHILS % 1.2 % (0.0-2.0); EOSINOPHILS % 5.8 % (0.0-5.0); HEMATOCRIT. 27.2 % (42.0-52.0); LYMPHOCYTES % 11.4 % (20.0-50.0); MEAN CORPUSCULAR VOLUME 93.9 fL (80.0-94.0); MEAN PLATELET VOLUME 9.3 fl (7.4-10.4); MONOCYTES % 7.3 % (2.0-8.0); NEUTROPHILS % 74.3 % (40.0-76.0); PLATELET 152 x1000/uL (130-400); RED CELL DISTRIBUTION WIDTH 15.1 % (11.6-14.6)
[2019-03-12] MEDS: IPRATROPIUM/ALBUTEROL 0.5-3(2.5)MG/3ML NEB INH PRN ×2 (08:51→16:53)
[2019-03-12] MEDS: ACETYLCYSTEINE 100MG/ML 10% VIAL 4ML INH SCH ×2 (08:51→16:53)
[2019-03-12] MEDS: APIXABAN 2.5 MG TABLET PO SCH ×2 (09:00→17:32)
[2019-03-12 09:34] LABS: CHLORIDE 109 mEq/L (98-107)
[2019-03-12 09:40] LABS: PHOSPHORUS 1.7 mg/dL (2.5-4.9)
[2019-03-12] MEDS ORDERED: SODIUM PHOS,M-BASIC-D-BASIC 20 MM in DEXT 5% WATER 243.3333 ML IV SCH (15:00)
[2019-03-12] MEDS: IRON SUCROSE COMPLEX 100 MG/5 ML ML IV SCH (17:35)
[2019-03-12] MEDS ORDERED: EPOETIN ALFA 10000UNITS/ML VIAL SUBCUT SCH (21:00)
[2019-03-12] MEDS: LATANOPROST 0.005% OPHTH DROPS 2.5ML BOTHEYE SCH (21:34)
[2019-03-13] VITALS (12 sets, daily range): BP systolic 115–144; BP diastolic 45–67
[2019-03-13] MEDS: IPRATROPIUM/ALBUTEROL 0.5-3(2.5)MG/3ML NEB INH PRN ×3 (00:36→16:31)
[2019-03-13] MEDS: ACETYLCYSTEINE 100MG/ML 10% VIAL 4ML INH SCH ×3 (00:36→16:32)
[2019-03-13] MEDS: PIPERACILLIN/TAZ 2.25G PREMIX 50 ML IV SCH ×2 (06:43→13:41)
[2019-03-13] MEDS: BLOOD SUGAR DIAGNOSTIC STRIP TEST SCH (08:14)
[2019-03-13] MEDS: APIXABAN 2.5 MG TABLET PO SCH ×2 (09:36→16:35)
[2019-03-13] MEDS: AMMONIUM LACTATE 12% LOTION 240ML TOP SCH ×2 (09:36→16:35)
[2019-03-13 11:28] LABS: BASOPHILS % 1.4 % (0.0-2.0); EOSINOPHILS % 5.1 % (0.0-5.0); HEMATOCRIT. 24.6 % (42.0-52.0); HEMOGLOBIN. 8.2 g/dL (14.0-18.0); LYMPHOCYTES % 12.7 % (20.0-50.0); MEAN CORPUSCULAR HEMOGLOBIN 30.7 pg (28.0-32.0); MEAN PLATELET VOLUME 8.6 fl (7.4-10.4); MONOCYTES % 7.8 % (2.0-8.0); PLATELET 180 x1000/uL (130-400); RED BLOOD CELL COUNT 2.67 mill/uL (4.7-6.1); RED CELL DISTRIBUTION WIDTH 14.7 % (11.6-14.6)
[2019-03-13 11:59] LABS: PHOSPHORUS 2.2 mg/dL (2.5-4.9)
[2019-03-13] MEDS: POTASSIUM-SODIUM PHOSPHATE POWDER PACKET PO SCH ×2 (13:41→21:38)
[2019-03-13] MEDS ORDERED: VANCOMYCIN 750 MG PREMIX 150 ML IV SCH (16:00)
[2019-03-13] MEDS: LATANOPROST 0.005% OPHTH DROPS 2.5ML BOTHEYE SCH (21:39)
== END 2019-03-13 23:45 | DRG 70 ==
LOC: 5EST 11:30
PROVIDERS: ADMIT Internal Medicine; ATTEND Internal Medicine
PROC: 30233N1 Transfusion of Nonautologous Red Blood Cells into Peripheral Vein, Percutaneous Approach (ICD-10-PCS; principal; 2019-03-10)
PROC: 5A1D70Z Performance of Urinary Filtration, Intermittent, Less than 6 Hours Per Day (ICD-10-PCS; 2019-03-10)
PROC: 5A1D70Z Performance of Urinary Filtration, Intermittent, Less than 6 Hours Per Day (ICD-10-PCS; 2019-03-13)
DX: G93.40 Encephalopathy, unspecified (principal); J18.9 Pneumonia, unspecified organism; G82.50 Quadriplegia, unspecified; N18.6 End stage renal disease; E72.20 Disorder of urea cycle metabolism, unspecified; I13.2 Hypertensive heart and chronic kidney disease with heart failure and with stage 5 chronic kidney disease, or end stage renal disease; I48.1 Persistent atrial fibrillation; I50.32 Chronic diastolic (congestive) heart failure; M86.60 Other chronic osteomyelitis, unspecified site; L89.150 Pressure ulcer of sacral region, unstageable; I27.20 Pulmonary hypertension, unspecified; R00.1 Bradycardia, unspecified; D50.9 Iron deficiency anemia, unspecified; D69.6 Thrombocytopenia, unspecified; E11.22 Type 2 diabetes mellitus with diabetic chronic kidney disease; E11.69 Type 2 diabetes mellitus with other specified complication; I25.10 Atherosclerotic heart disease of native coronary artery without angina pectoris; Z99.2 Dependence on renal dialysis; Z98.1 Arthrodesis status
CPT/HCPCS: 36415; 71045; 78580; 80048; 80061; 80202; 82270; 82962; 83735; 84100; 84134; 84484; 86850; 86900; 86920; 93005; 94640; 97162; A6261; J0885; J2543; J3370; J3490; J7050; J7060; J7608; J7620; P9016